=== PATIENT | male | born 1960 ===

== ENCOUNTER 2016-06-13 18:36 | Inpatient (IN) | payer OTHER ==
[2016-06-13] MEDS ORDERED: Sodium Chloride 0.9% 1,000 ML IV ONE (19:48)
--- NOTE | 2016-06-13 19:52 | C.PDOC ---
History Of Present Illness The patient, a 55 y/o male, presents to the ED for evaluation after being referred by Dr. Baldwin for admission. Patient has history of kidney stones and bilateral stents. Patient reports severe left-sided pelvic pain and pain to his hypogastric region. Patient underwent CT A/P on 06/11. Otherwise, he denies fever, chills, back pain, nausea, and vomiting. Time Seen by Provider: 06/13/16 19:37 Chief Complaint (Nursing): Male Genitourinary History Per: Patient History/Exam Limitations: no limitations Onset/Duration Of Symptoms: Days Current Symptoms Are (Timing): Still Present Severity: Severe Quality Of Discomfort: "Pain" Associated Symptoms: denies: Fever, Chills, Nausea, Vomiting, Chest Pain Additional History Per: Patient Past Medical History Reviewed: Historical Data, Nursing Documentation, Vital Signs Vital Signs: Last Vital Signs Temp 98.3 F 06/14/16 00:00 Pulse 62 06/14/16 00:00 Resp 20 06/14/16 00:00 BP 137/73 06/14/16 00:00 Pulse Ox 98 06/14/16 02:06 - Medical History PMH: Anxiety, Depression, HTN, Kidney Stones Surgical History: No Surg Hx Family History: States: Unknown Family Hx - Social History Hx Alcohol Use: Yes Hx Substance Use: No - Immunization History Hx Tetanus Toxoid Vaccination: No Hx Influenza Vaccination: No Hx Pneumococcal Vaccination: No Review Of Systems Except As Marked, All Systems Reviewed And Found Negative. Constitutional: Negative for: Fever, Chills Gastrointestinal: Positive for: Other (+left-sided pelvic and hypogastric region pain ). Negative for: Nausea, Vomiting Musculoskeletal: Negative for: Back Pain Physical Exam - Physical Exam Appears: Non-toxic, No Acute Distress Skin: Normal Color, Warm, Dry Head: Atraumatic, Normacephalic Eye(s): bilateral: Normal Inspection Oral Mucosa: Moist Neck: Supple Chest: Symmetrical, No Deformity, No Tenderness Cardiovascular: Rhythm Regular, No Murmur Respiratory: Normal Breath Sounds, No Rales, No Rhonchi, No Wheezing Gastrointestinal/Abdominal: Tenderness (mild to lower quadrant ), No Guarding, No Rebound Back: Normal Inspection, No Vertebral Tenderness, No Paraspinal Tenderness Extremity: Normal ROM, Capillary Refill (less than 2 seconds ) Neurological/Psych: Oriented x3, Normal Speech, Normal Cognition Gait: Steady ED Course And Treatment - Laboratory Results Result Diagrams: 06/13/16 20:24 06/13/16 20:24 O2 Sat by Pulse Oximetry: 98 (on RA) Pulse Ox Interpretation: Normal - CT Scan/US CT A/P from 06/11/16 Other Rad Studies (CT/US): Interpreted By Me, Read By Radiologist, Radiology Report Reviewed CT/US Interpretation: Accession No. : [id number]. Patient Name / ID : JEFFERSON MASTERS / [id number]. Exam Date : 06/11/2016 10:45:37 ( Approved ). Study Comment : Sex / Age : M / 55Y. Creator : Pattie Garces MD. Dictator : Pattie Garces MD. Certified Teacher Assistant : Poultry Killer : Pattie Garces MD. Approver2 : Report Date : 06/13/2016 11:29:55. My Comment : . PROCEDURE: CT Abdomen and Pelvis without Oral or IV contrast. HISTORY: KIDNEY STONES. COMPARISON: None available. TECHNIQUE: Contiguous axial images of the abdomen and pelvis. No oral or IV contrast administered. Coronal and Sagittal reformats generated and reviewed. Radiation dose: Total exam DLP = 973.01 mGy-cm. This CT exam was performed using one or more of the following dose reduction techniques: Automated exposure control, adjustment of the mA and/ or kV according to patient size, and/or use of iterative reconstruction technique. FINDINGS: There is limited evaluation of the solid organs without the administration of IV contrast. LOWER THORAX: No visible consolidation, pleural effusion, or pneumothorax. LIVER: Unremarkable unenhanced appearance. GALLBLADDER AND BILE DUCTS: Unremarkable unenhanced appearance. PANCREAS: Unremarkable unenhanced appearance. SPLEEN: Unremarkable unenhanced appearance. ADRENALS: Unremarkable unenhanced appearance. KIDNEYS AND URETERS : Bilateral ureteral stents with severe hydronephrosis. Dependent layering calcifications noted within the left kidney compatible with calculi. Within the proximal ureter there is a 1.3 x 1.5 cm calculus. Thick-walled under distended urinary bladder. BLADDER: See above. REPRODUCTIVE: The prostate gland measures approximately 3.5 x 3.8 cm. APPENDIX: The appendix appears unremarkable. BOWEL: The stomach is nondistended. Lack of oral contrast limits evaluation for bowel pathology. The bowel loops appear within normal limits of caliber without evidence of intestinal obstruction. PERITONEUM: No significant free fluid. No definite free air. LYMPH NODES: No bulky lymphadenopathy identified. VASCULATURE: No aortic aneurysm. BONES: Mild degenerative changes. OTHER FINDINGS: None. IMPRESSION: Bilateral ureteral stents with severe hydronephrosis. Dependent layering calcifications noted within the left kidney compatible with calculi. Within the proximal ureter there is a 1.3 x 1.5 cm calculus. Thick-walled under distended urinary bladder. Progress Note: labs ordered and reviewed. Patient recieved Ciproflaxin IV, Diluadid IV, Flomax PO, and IV fluids. Disposition Discussed With DrCj: Erasto Norris (Dr. Erlinda Baldwin-urology consult) Doctor Will See Patient In The: Hospital Counseled Patient/Family Regarding: Studies Performed, Diagnosis - Disposition Disposition: HOSPITALIZED Disposition Time: 21:39 Condition: STABLE - POA Present On Arrival: None - Clinical Impression Clinical Impression: Renal colic, Urinary tract infection, Hydronephrosis - Scribe Statement The provider has reviewed the documentation as recorded by the Scribe (Estefanía Norris) Provider Attestation: All medical record entries made by the Scribe were at my direction and personally dictated by me. I have reviewed the chart and agree that the record accurately reflects my personal performance of the history, physical exam, medical decision making, and the department course for this patient. I have also personally directed, reviewed, and agree with the discharge instructions and disposition.
[2016-06-13] MEDS ORDERED: Sodium Chloride 0.9% 1,000 ML ONE (20:06)
[2016-06-13] MEDS ORDERED: Ciprofloxacin 400mg/200ml D5W 400 MG/200 ML BAG IVPB STA (20:08)
[2016-06-13 20:28] LABS: BASO # 0.1 K/uL (0.0-0.2); BASO % 0.7 % (0.0-2.0); EOS # 0.4 K/uL (0.0-0.7); EOS % 2.9 % (0.0-4.0); HEMATOCRIT 42.8 % (35.0-51.0); LYMPH # 3.4 K/uL (1.0-4.3); LYMPH % 23.4 % (20.0-40.0); MEAN CORPUSCULAR HEMOGLOBIN 28.4 pg (27.0-31.0); MEAN CORPUSCULAR HGB CONC 32.6 g/dL (33.0-37.0); MEAN PLATELET VOLUME 7.7 fL (7.2-11.7); MONO # 1.2 K/uL (0.0-0.8); MONO % 8.2 % (0.0-10.0); RED CELL DISTRIBUTION WIDTH 14.4 % (11.5-14.5); WHITE BLOOD COUNT 14.6 K/uL (4.8-10.8)
[2016-06-13 20:36] LABS: RBC URINE 288 /hpf (0-3); URINE BILIRUBIN NEGATIVE (NEGATIVE); URINE BLOOD 3+ (NEGATIVE); URINE COLOR Yellow (YELLOW); URINE GLUCOSE (UA) NORMAL (Normal); URINE KETONE NEGATIVE (NEGATIVE); URINE LEUKOCYTE ESTERASE 3+ Leu/uL (Negative); URINE PROTEIN 1+ mg/dL (NEGATIVE); URINE UROBILINOGEN NORMAL mg/dL (0.2-1.0); WBC URINE 62 /hpf (0-5)
[2016-06-13 20:38] LABS: CHLORIDE 104 mmol/L (98-107); POTASSIUM 4.2 mmol/L (3.6-5.2); SODIUM 139 mmol/L (132-148)
[2016-06-13 20:40] LABS: BILIRUBIN,TOTAL 0.6 mg/dL (0.2-1.3); CARBON DIOXIDE 23 mmol/L (22-30); GFR AFRICAN-AMERICAN > 60
[2016-06-13 20:41] LABS: ALB/GLOB RATIO 1.4 (1.0-2.1); ALKALINE PHOSPHATASE 82 U/L (38-126); ALT/SGPT 15 U/L (21-72); AST/SGOT 15 U/L (17-59); BLOOD UREA NITROGEN 17 mg/dL (9-20); CALCIUM 9.1 mg/dl (8.6-10.4); GLUCOSE,RANDOM 135 mg/dL (75-110); TOTAL PROTEIN 7.3 g/dL (6.3-8.3)
[2016-06-13] MEDS ORDERED: Ciprofloxacin 400mg/200ml D5W 400 MG/200 ML BAG IVPB ONE (20:47)
[2016-06-13 21:33] LABS: URINE BACTERIA FEW (<OCC)
--- NOTE | 2016-06-13 22:57 | CP.PCM.HP ---
History of Present Illness - History of Present Illness History of Present Illness: 55 years old male patient with past medical history of hypertension, kidney stones, depression, was referred by Dr. Baldwin for complaint of left-sided pelvic pain and for further evaluation. No fever nausea vomiting No chest pain, diarrhea, burning micturition, hematuria Present on Admission - Present on Admission Any Indicators Present on Admission: No Past Patient History - Infectious Disease Hx of Infectious Diseases: None - Past Social History Smoking Status: Heavy Smoker > 10 Cigarettes Daily - CARDIAC Hx Hypertension: Yes - RENAL Hx Kidney Stones: Yes - PSYCHIATRIC Hx Anxiety: Yes Hx Depression: Yes Hx Substance Use: No - SURGICAL HISTORY Other/Comment: TURP - ANESTHESIA Hx Anesthesia: Yes Hx Anesthesia Reactions: No Meds Allergies/Adverse Reactions: Allergies Allergy/AdvReac Type Severity Reaction Status Date / Time No Known Allergies Allergy Verified 08/01/16 18:58 Results - Vital Signs Recent Vital Signs: Last Vital Signs Temp 98.2 F 06/13/16 18:44 Pulse 72 06/13/16 21:57 Resp 18 06/13/16 21:57 BP 122/72 06/13/16 21:57 Pulse Ox 98 06/13/16 22:53 - Labs Result Diagrams: 06/20/16 11:33 06/20/16 11:33 Assessment & Plan (1) Hematuria Status: Acute (2) Hydronephrosis Status: Acute (3) Renal colic Status: Acute (4) UTI (urinary tract infection) Status: Acute (5) Urinary tract infection Status: Acute - Assessment and Plan (Free Text) Plan: Labs reviewed IV ciprofloxacin Lovenox Urology consult Blood pressure control Pain meds Labs next a.m.
[2016-06-14] MEDS: Enoxaparin 40 mg Syringe SC SCH (10:38)
[2016-06-14] MEDS: Pantoprazole 40 mg EC Tab PO SCH (10:38)
[2016-06-14] MEDS: Ciprofloxacin 400mg/200ml D5W 400 MG/200 ML BAG IVPB SCH ×3 (10:48→22:05)
--- NOTE | 2016-06-14 12:02 | CP.PCM.CON ---
Past Patient History - Infectious Disease Hx of Infectious Diseases: None - Past Social History Smoking Status: Current Some Days Smoker - CARDIAC Hx Cardiac Disorders: Yes Hx Hypertension: Yes - PULMONARY Hx Respiratory Disorders: No - NEUROLOGICAL Hx Neurological Disorder: No - HEENT Hx HEENT Problems: No - RENAL Hx Kidney Stones: Yes - ENDOCRINE/METABOLIC Hx Endocrine Disorders: Yes - HEMATOLOGICAL/ONCOLOGICAL Hx Blood Disorders: Yes - INTEGUMENTARY Hx Dermatological Problems: Yes - MUSCULOSKELETAL/RHEUMATOLOGICAL Hx Musculoskeletal Disorders: Yes Hx Falls: No - GASTROINTESTINAL Hx Gastrointestinal Disorders: Yes - PSYCHIATRIC Hx Psychophysiologic Disorder: Yes Hx Anxiety: Yes Hx Depression: Yes Hx Substance Use: No - SURGICAL HISTORY Hx Surgeries: Yes Other/Comment: TURP - ANESTHESIA Hx Anesthesia: Yes Hx Anesthesia Reactions: No Meds Allergies/Adverse Reactions: Allergies Allergy/AdvReac Type Severity Reaction Status Date / Time No Known Allergies Allergy Verified 06/13/16 18:50 - Medications Medications: Current Medications Allopurinol (Zyloprim) 300 mg PO DAILY [facility] Last Admin: 06/14/16 10:38 Dose: 300 mg Carvedilol (Coreg) 6.25 mg PO BID [facility] Last Admin: 06/14/16 10:47 Dose: 6.25 mg Citalopram Hydrobromide (Celexa) 20 mg PO DAILY [facility] Last Admin: 06/14/16 10:48 Dose: 20 mg Enoxaparin Sodium (Lovenox) 40 mg SC DAILY [facility] Last Admin: 06/14/16 10:38 Dose: 40 mg Home Med (Potassium Citrate [Potassium Citrate Er]) 10 meq PO TID [facility] Ciprofloxacin (Cipro 400mg/200ml Dsw) 400 mg in 200 mls @ 133 mls/hr IVPB Q12H [facility] Last Admin: 06/14/16 10:48 Dose: 133 mls/hr Lisinopril (Zestril) 10 mg PO DAILY [facility] Last Admin: 06/14/16 10:38 Dose: 10 mg Pantoprazole Sodium (Protonix Ec Tab) 40 mg PO DAILY [facility] Last Admin: 06/14/16 10:38 Dose: 40 mg Pneumococcal Polyvalent Vaccine (Pneumovax 23 Vaccine) 0.5 ml IM .ONCE ONE Stop: 06/15/16 10:01 Tamsulosin HCl (Flomax) 0.4 mg PO DAILY [facility] Last Admin: 06/14/16 10:38 Dose: 0.4 mg Tramadol HCl (Ultram) 50 mg PO Q6H PRN PRN Reason: Pain, moderate (4-7) Last Admin: 06/14/16 01:43 Dose: 50 mg Results - Vital Signs Recent Vital Signs: Last Vital Signs Temp 97.9 F 06/14/16 07:36 Pulse 60 06/14/16 07:36 Resp 20 06/14/16 07:36 BP 121/69 06/14/16 07:36 Pulse Ox 99 06/14/16 07:36 - Labs Result Diagrams: 06/13/16 20:24 06/13/16 20:24 Assessment & Plan - Assessment and Plan (Free Text) Assessment: IMP: ABD PAIN UROLITHIASIS HYDRONEPHROSIS - Date & Time Date: 06/14/16 Time: 12:01
--- NOTE | 2016-06-14 16:42 | CP.PCM.PN ---
Subjective - Date & Time of Evaluation Date of Evaluation: 06/14/16 Time of Evaluation: 10:00 - Subjective Subjective: clinically same Objective - Vital Signs/Intake and Output Vital Signs (last 24 hours): Temp Pulse Resp BP Pulse Ox 98.3 F 62 20 130/78 97 06/14/16 16:11 06/14/16 16:11 06/14/16 16:11 06/14/16 16:11 06/14/16 16:11 - Medications Medications: Current Medications Allopurinol (Zyloprim) 300 mg PO DAILY [facility] Last Admin: 06/14/16 10:38 Dose: 300 mg Carvedilol (Coreg) 6.25 mg PO BID [facility] Last Admin: 06/14/16 10:47 Dose: 6.25 mg Citalopram Hydrobromide (Celexa) 20 mg PO DAILY [facility] Last Admin: 06/14/16 10:48 Dose: 20 mg Enoxaparin Sodium (Lovenox) 40 mg SC DAILY [facility] Last Admin: 06/14/16 10:38 Dose: 40 mg Home Med (Potassium Citrate [Potassium Citrate Er]) 10 meq PO TID [facility] Ciprofloxacin (Cipro 400mg/200ml Dsw) 400 mg in 200 mls @ 133 mls/hr IVPB Q12H [facility] Last Admin: 06/14/16 10:48 Dose: 133 mls/hr Lisinopril (Zestril) 10 mg PO DAILY [facility] Last Admin: 06/14/16 10:38 Dose: 10 mg Pantoprazole Sodium (Protonix Ec Tab) 40 mg PO DAILY [facility] Last Admin: 06/14/16 10:38 Dose: 40 mg Pneumococcal Polyvalent Vaccine (Pneumovax 23 Vaccine) 0.5 ml IM .ONCE ONE Stop: 06/15/16 10:01 Tamsulosin HCl (Flomax) 0.4 mg PO DAILY [facility] Last Admin: 06/14/16 10:38 Dose: 0.4 mg Tramadol HCl (Ultram) 50 mg PO Q6H PRN PRN Reason: Pain, moderate (4-7) Last Admin: 06/14/16 01:43 Dose: 50 mg - Constitutional Appears: Well - Head Exam Head Exam: ATRAUMATIC, NORMAL INSPECTION, NORMOCEPHALIC - Eye Exam Eye Exam: EOMI, Normal appearance, PERRL Pupil Exam: NORMAL ACCOMODATION, PERRL - ENT Exam ENT Exam: Mucous Membranes Moist, Normal Exam - Neck Exam Neck Exam: Full ROM, Normal Inspection. 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 antibiotcs
[2016-06-14 16:53] LABS: BASO # 0.1 K/uL (0.0-0.2); BASO % 0.7 % (0.0-2.0); EOS # 0.4 K/uL (0.0-0.7); EOS % 4.1 % (0.0-4.0); HEMATOCRIT 41.2 % (35.0-51.0); LYMPH % 29.9 % (20.0-40.0); MEAN CELL VOLUME 88.1 fL (80.0-94.0); MEAN CORPUSCULAR HEMOGLOBIN 29.6 pg (27.0-31.0); MEAN CORPUSCULAR HGB CONC 33.6 g/dL (33.0-37.0); MEAN PLATELET VOLUME 7.6 fL (7.2-11.7); MONO # 0.7 K/uL (0.0-0.8); MONO % 6.7 % (0.0-10.0); RED CELL DISTRIBUTION WIDTH 14.6 % (11.5-14.5); WHITE BLOOD COUNT 10.2 K/uL (4.8-10.8)
[2016-06-14 17:10] LABS: CHLORIDE 104 mmol/L (98-107)
[2016-06-14 17:11] LABS: SODIUM 136 mmol/L (132-148)
[2016-06-14 17:13] LABS: ALB/GLOB RATIO 1.3 (1.0-2.1); AST/SGOT 15 U/L (17-59); BILIRUBIN,TOTAL 0.5 mg/dL (0.2-1.3); CARBON DIOXIDE 22 mmol/L (22-30); GFR AFRICAN-AMERICAN > 60; TOTAL PROTEIN 6.6 g/dL (6.3-8.3)
[2016-06-14 17:14] LABS: ALKALINE PHOSPHATASE 88 U/L (38-126); ALT/SGPT 19 U/L (21-72); BLOOD UREA NITROGEN 14 mg/dL (9-20); CALCIUM 8.6 mg/dl (8.6-10.4); GLUCOSE,RANDOM 157 mg/dL (75-110)
--- NOTE | 2016-06-15 04:44 | CON ---
DATE: 06/14/2016 Urology consultation requested by Dr. Param Norris. Urology consultation filled by Dr. Erlinda Baldwin. REASON FOR CONSULTATION: Urinary tract infection. Urolithiasis. The patient is a 55-year-old male admitted with abdominal pain. The patient has history of bilateral urolithiasis. He had kidney stones diagnosed a year ago. The p atient did not comply with the recommended therapy or followup for his kidney stones. The patient presented to [facility] with renal failure earlier this year. He was fou nd to have bilateral obstructing ureteral stones and renal stones on the left. The patient had a cys toscopy and bilateral stent insertion. He had improvement of his renal function. The patient subsequently underwent extracorporeal shockwave lithotripsy after improvement of his brigida l function. The patient had a uric acid component to his stones. He was also begun on Urocit-K. The patient now presents with abdominal pain. He has lower abdominal pain associated with voiding. He has occasional flank pain. There was possible recent fever as well. The patient voids with good urinary stream with good control. The patient has urinary frequency. For further details, see attached chart. PHYSICAL EXAMINATION: GENERAL: The patient is a well-developed, well-nourished, middle-aged male. The patient is awake an d alert. ABDOMEN: Soft, nontender, nondistended. No mass or organomegaly. BACK: No CVA tenderness. GENITALIA: Without inflammation. IMPRESSION: Urolithiasis. Probable urinary tract infection. Bilateral ureteral stents in place. H istory of severe hydronephrosis. History of bilateral urolithiasis. RECOMMENDATIONS AND PLAN: Continue antibiotic therapy. Cultures pending. Review x-rays. Further t herapy to follow according to patient's clinical course. Possible need for lithotripsy. The findings were discussed with the patient and his . Erlinda Baldwin MD cc: [phone] TT: 06/15/2016 04:43:51 Confirmation # [id number] Dictation # [id number]
--- NOTE | 2016-06-15 08:46 | CP.PCM.PN ---
Subjective - Date & Time of Evaluation Date of Evaluation: 06/15/16 Time of Evaluation: 08:00 - Subjective Subjective: PGY2 Medicine Note - Dr. Aundrea Norris's service: Patient seen and examined this AM. Patient sitting comfortably in chair playing game on tablet. Patient is a 55 year old male with history of b/l urolithiasis for which he had cystoscopy and b/l ureteral stents placed at [facility]. Patient reports mild right groin pain last night. Patient denies fever, chills, chest pain, SOB, nausea, vomiting, dysuria, hematuria. Objective - Vital Signs/Intake and Output Vital Signs (last 24 hours): Temp Pulse Resp BP Pulse Ox 97.7 F 62 20 115/76 100 06/15/16 07:08 06/15/16 07:08 06/15/16 07:08 06/15/16 07:08 06/15/16 07:08 Intake and Output: 06/15/16 06/15/16 06:59 18:59 Intake Total 670 Balance 670 - Medications Medications: Current Medications Allopurinol (Zyloprim) 300 mg PO DAILY [facility] Last Admin: 06/14/16 10:38 Dose: 300 mg Carvedilol (Coreg) 6.25 mg PO BID [facility] Last Admin: 06/14/16 17:22 Dose: 6.25 mg Citalopram Hydrobromide (Celexa) 20 mg PO DAILY [facility] Last Admin: 06/14/16 10:48 Dose: 20 mg Enoxaparin Sodium (Lovenox) 40 mg SC DAILY [facility] Last Admin: 06/14/16 10:38 Dose: 40 mg Home Med (Potassium Citrate [Potassium Citrate Er]) 10 meq PO TID [facility] Ciprofloxacin (Cipro 400mg/200ml Dsw) 400 mg in 200 mls @ 133 mls/hr IVPB Q12H [facility] Last Admin: 06/14/16 22:05 Dose: 133 mls/hr Lisinopril (Zestril) 10 mg PO DAILY [facility] Last Admin: 06/14/16 10:38 Dose: 10 mg Nicotine (Nicoderm Cq) 1 patch TD DAILY [facility] Pantoprazole Sodium (Protonix Ec Tab) 40 mg PO DAILY [facility] Last Admin: 06/14/16 10:38 Dose: 40 mg Pneumococcal Polyvalent Vaccine (Pneumovax 23 Vaccine) 0.5 ml IM .ONCE ONE Stop: 06/15/16 10:01 Tamsulosin HCl (Flomax) 0.4 mg PO DAILY [facility] Last Admin: 06/14/16 10:38 Dose: 0.4 mg Tramadol HCl (Ultram) 50 mg PO Q6H PRN PRN Reason: Pain, moderate (4-7) Last Admin: 06/14/16 17:25 Dose: 50 mg - Labs Labs: 06/14/16 16:43 06/14/16 16:43 - Constitutional Appears: Non-toxic, No Acute Distress - Head Exam Head Exam: NORMAL INSPECTION - Eye Exam Eye Exam: EOMI - ENT Exam ENT Exam: Mucous Membranes Moist - Respiratory Exam Respiratory Exam: Clear to Ausculation Bilateral, NORMAL BREATHING PATTERN. absent: Rales, Rhonchi, Wheezes - Cardiovascular Exam Cardiovascular Exam: REGULAR RHYTHM, +S1, +S2. absent: Gallop, Rubs, Murmur - GI/Abdominal Exam GI & Abdominal Exam: Soft, Normal Bowel Sounds. absent: Tenderness - Extremities Exam Extremities Exam: absent: Pedal Edema - Neurological Exam Neurological Exam: Alert, Oriented x3 - Psychiatric Exam Psychiatric exam: Normal Affect, Normal Mood - Skin Skin Exam: Normal Color, Warm Assessment and Plan - Assessment and Plan (Free Text) Assessment: UTI UA 1+ protein, 3+ blood, 3+ LE, 62 WBC, 288 RBC F/U urine culture Blood culture neg x 24 hours Urolithiasis Found to have uric acid component after cystoscopy earlier this year UA 1+ protein, 3+ blood, 3+ LE, 62 WBC, 288 RBC Urology conulst - Dr. Baldwin - help appreciated Tramadol 50mg PO Q6H PRN pain - not taken since 5:30pm last night Flomax 0.4mg PO daily Allopurinol 300mg PO daily HTN Coreg 6.25mg PO BID Lisinopril 10mg PO daily Depression Celexa 20mg PO daily Tobacco abuse Nicotine patch 21mg/patch TD daily Prophylaxis Protonix 40mg PO daily Lovenox 40mg SC daily
[2016-06-15] MEDS: Pantoprazole 40 mg EC Tab PO SCH (09:44)
[2016-06-15] MEDS: Enoxaparin 40 mg Syringe SC SCH (09:46)
[2016-06-15] MEDS ORDERED: Potassium Chloride 20 mEq ER Tab PO ONE (10:00)
[2016-06-15] MEDS ORDERED: Pneumococcal 23-Valent Vaccine IM ONE (10:00)
[2016-06-15] MEDS: Ciprofloxacin 400mg/200ml D5W 400 MG/200 ML BAG IVPB SCH ×2 (12:48→22:04)
--- NOTE | 2016-06-15 18:23 | CP.PCM.PN ---
Subjective - Date & Time of Evaluation Date of Evaluation: 06/15/16 Time of Evaluation: 10:20 - Subjective Subjective: clinically same Objective - Vital Signs/Intake and Output Vital Signs (last 24 hours): Temp Pulse Resp BP Pulse Ox 98.1 F 59 L 20 154/89 H 97 06/15/16 15:10 06/15/16 15:10 06/15/16 15:10 06/15/16 15:10 06/15/16 15:10 Intake and Output: 06/15/16 06/15/16 06:59 18:59 Intake Total 670 200 Balance 670 200 - Medications Medications: Current Medications Allopurinol (Zyloprim) 300 mg PO DAILY [facility] Last Admin: 06/15/16 09:44 Dose: 300 mg Carvedilol (Coreg) 6.25 mg PO BID [facility] Last Admin: 06/15/16 17:36 Dose: 6.25 mg Citalopram Hydrobromide (Celexa) 20 mg PO DAILY [facility] Last Admin: 06/15/16 09:44 Dose: 20 mg Enoxaparin Sodium (Lovenox) 40 mg SC DAILY [facility] Last Admin: 06/15/16 09:46 Dose: 40 mg Ciprofloxacin (Cipro 400mg/200ml Dsw) 400 mg in 200 mls @ 133 mls/hr IVPB Q12H [facility] Last Admin: 06/15/16 12:48 Dose: 133 mls/hr Lisinopril (Zestril) 10 mg PO DAILY [facility] Last Admin: 06/15/16 09:44 Dose: 10 mg Nicotine (Nicoderm Cq) 1 patch TD DAILY [facility] Last Admin: 06/15/16 12:49 Dose: 1 patch Pantoprazole Sodium (Protonix Ec Tab) 40 mg PO DAILY [facility] Last Admin: 06/15/16 09:44 Dose: 40 mg Tamsulosin HCl (Flomax) 0.4 mg PO DAILY [facility] Last Admin: 06/15/16 09:44 Dose: 0.4 mg Tramadol HCl (Ultram) 50 mg PO Q6H PRN PRN Reason: Pain, moderate (4-7) Last Admin: 06/15/16 17:36 Dose: 50 mg - Labs Labs: 06/14/16 16:43 06/14/16 16:43 - Constitutional Appears: Well - Head Exam Head Exam: ATRAUMATIC, NORMAL INSPECTION, NORMOCEPHALIC - Eye Exam Eye Exam: EOMI, Normal appearance, PERRL Pupil Exam: NORMAL ACCOMODATION, PERRL - ENT Exam ENT Exam: Mucous Membranes Moist, Normal Exam - Neck Exam Neck Exam: Full ROM, Normal Inspection. 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 antibiotcs
[2016-06-16 08:00] LABS: BASO # 0.1 K/uL (0.0-0.2); BASO % 0.5 % (0.0-2.0); EOS # 0.4 K/uL (0.0-0.7); EOS % 2.9 % (0.0-4.0); HEMATOCRIT 44.2 % (35.0-51.0); LYMPH # 3.2 K/uL (1.0-4.3); LYMPH % 26.7 % (20.0-40.0); MEAN CELL VOLUME 87.9 fL (80.0-94.0); MEAN CORPUSCULAR HEMOGLOBIN 28.9 pg (27.0-31.0); MEAN CORPUSCULAR HGB CONC 32.9 g/dL (33.0-37.0); MEAN PLATELET VOLUME 7.7 fL (7.2-11.7); MONO % 8.1 % (0.0-10.0); NRBC % 0.1 % (0.0-2.0); RED CELL DISTRIBUTION WIDTH 14.3 % (11.5-14.5)
[2016-06-16 08:23] LABS: INR 1.1
[2016-06-16 08:32] LABS: CHLORIDE 104 mmol/L (98-107); POTASSIUM 4.2 mmol/L (3.6-5.2); SODIUM 140 mmol/L (132-148)
[2016-06-16 08:34] LABS: GFR AFRICAN-AMERICAN > 60
[2016-06-16 08:35] LABS: ALB/GLOB RATIO 1.4 (1.0-2.1); ALKALINE PHOSPHATASE 87 U/L (38-126); ALT/SGPT 19 U/L (21-72); AST/SGOT 14 U/L (17-59); BILIRUBIN,TOTAL 0.8 mg/dL (0.2-1.3); BLOOD UREA NITROGEN 16 mg/dL (9-20); CALCIUM 9.2 mg/dl (8.6-10.4); CARBON DIOXIDE 25 mmol/L (22-30); GLUCOSE,RANDOM 87 mg/dL (75-110)
--- NOTE | 2016-06-16 10:38 | CP.PCM.PN ---
Subjective - Date & Time of Evaluation Date of Evaluation: 06/16/16 Time of Evaluation: 10:00 - Subjective Subjective: PGY2 Medicine Note - Dr. Aundrea Norris's service: Patient seen and examined this AM. Patient reports mild right groin pain last night. Patient denies fever, chills, chest pain, SOB, nausea, vomiting, dysuria , hematuria. Objective - Vital Signs/Intake and Output Vital Signs (last 24 hours): Temp Pulse Resp BP Pulse Ox 98 F 60 20 150/88 98 06/16/16 08:38 06/16/16 08:38 06/16/16 08:38 06/16/16 08:38 06/16/16 08:38 Intake and Output: 06/16/16 06/16/16 06:59 18:59 Intake Total 0 Balance 0 - Medications Medications: Current Medications Allopurinol (Zyloprim) 300 mg PO DAILY [facility] Last Admin: 06/15/16 09:44 Dose: 300 mg Carvedilol (Coreg) 6.25 mg PO BID [facility] Last Admin: 06/15/16 17:36 Dose: 6.25 mg Citalopram Hydrobromide (Celexa) 20 mg PO DAILY [facility] Last Admin: 06/15/16 09:44 Dose: 20 mg Enoxaparin Sodium (Lovenox) 40 mg SC DAILY [facility] Last Admin: 06/15/16 09:46 Dose: 40 mg Ciprofloxacin (Cipro 400mg/200ml Dsw) 400 mg in 200 mls @ 133 mls/hr IVPB Q12H [facility] Last Admin: 06/15/16 22:04 Dose: 133 mls/hr Lisinopril (Zestril) 10 mg PO DAILY [facility] Last Admin: 06/15/16 09:44 Dose: 10 mg Nicotine (Nicoderm Cq) 1 patch TD DAILY [facility] Last Admin: 06/15/16 12:49 Dose: 1 patch Pantoprazole Sodium (Protonix Ec Tab) 40 mg PO DAILY [facility] Last Admin: 06/15/16 09:44 Dose: 40 mg Tamsulosin HCl (Flomax) 0.4 mg PO DAILY [facility] Last Admin: 06/15/16 09:44 Dose: 0.4 mg Tramadol HCl (Ultram) 50 mg PO Q6H PRN PRN Reason: Pain, moderate (4-7) Last Admin: 06/15/16 17:36 Dose: 50 mg - Labs Labs: 06/16/16 07:47 06/16/16 07:47 PT 12.5 SECONDS (9.7-12.2) H 06/16/16 07:47 INR 1.1 06/16/16 07:47 APTT 33 SECONDS (21-34) 06/16/16 07:47 - Constitutional Appears: Non-toxic, No Acute Distress - Head Exam Head Exam: NORMAL INSPECTION - Eye Exam Eye Exam: EOMI - ENT Exam ENT Exam: Mucous Membranes Moist - Respiratory Exam Respiratory Exam: Clear to Ausculation Bilateral, NORMAL BREATHING PATTERN. absent: Rales, Rhonchi, Wheezes - Cardiovascular Exam Cardiovascular Exam: REGULAR RHYTHM, +S1, +S2. absent: Gallop, Rubs, Murmur - GI/Abdominal Exam GI & Abdominal Exam: Soft, Normal Bowel Sounds. absent: Tenderness - Extremities Exam Extremities Exam: absent: Pedal Edema - Neurological Exam Neurological Exam: Alert, Awake, Oriented x3 - Psychiatric Exam Psychiatric exam: Normal Affect, Normal Mood - Skin Skin Exam: Normal Color, Warm Assessment and Plan - Assessment and Plan (Free Text) Assessment: Nephrolithiasis Abd/Pelvis CT 06/11/16 - b/l ureteral stents with severe hydronephrosis. Depending layering calcifications notes within the left kidney compatible with calculi. Within the proximal ureter there is a 1.3 x 1.5 cm calculus. (please see full report) Found to have uric acid component after cystoscopy earlier this year UA 1+ protein, 3+ blood, 3+ LE, 62 WBC, 288 RBC urine culture negative Blood culture neg x 48 hours Urology consult - Dr. Baldwin - help appreciated Percutaneous nephrostomy shunt by IR today Percutaneous removal of renal stones on Monday by Dr. Baldwin Tramadol 50mg PO Q6H PRN pain - not taken since 5:30pm last night Flomax 0.4mg PO daily Allopurinol 300mg PO daily HTN Coreg 6.25mg PO BID Lisinopril 10mg PO daily Depression Celexa 20mg PO daily Tobacco abuse Nicotine patch 21mg/patch TD daily Prophylaxis Protonix 40mg PO daily Lovenox 40mg SC daily
[2016-06-16] MEDS: Enoxaparin 40 mg Syringe SC SCH (11:07)
[2016-06-16] MEDS: Pantoprazole 40 mg EC Tab PO SCH (11:07)
--- NOTE | 2016-06-16 11:23 | PCM.URO ---
Urology Progress Note - Objective Lab Results Last 24 Hours: Laboratory Results - last 24 hr 06/16/16 06/16/16 06/16/16 07:47 07:47 07:47 WBC 12.0 H RBC 5.03 Hgb 14.6 Hct 44.2 MCV 87.9 MCH 28.9 MCHC 32.9 L RDW 14.3 Plt Count 391 MPV 7.7 Neut % (Auto) 61.8 Lymph % (Auto) 26.7 Sibley % (Auto) 8.1 Eos % (Auto) 2.9 Baso % (Auto) 0.5 Neut # 7.4 H Lymph # 3.2 Sibley # 1.0 H Eos # 0.4 Baso # 0.1 PT 12.5 H INR 1.1 APTT 33 Sodium 140 Potassium 4.2 Chloride 104 Carbon Dioxide 25 Anion Gap 16 BUN 16 Creatinine 1.2 Est GFR ( Amer) > 60 Est GFR (Non-Af Amer) > 60 Random Glucose 87 Calcium 9.2 Total Bilirubin 0.8 AST 14 L ALT 19 L Alkaline Phosphatase 87 Total Protein 7.0 Albumin 4.1 Globulin 2.9 Albumin/Globulin Ratio 1.4 Blood Type Antibody Screen 06/16/16 07:47 WBC RBC Hgb Hct MCV MCH MCHC RDW Plt Count MPV Neut % (Auto) Lymph % (Auto) Sibley % (Auto) Eos % (Auto) Baso % (Auto) Neut # Lymph # Sibley # Eos # Baso # PT INR APTT Sodium Potassium Chloride Carbon Dioxide Anion Gap BUN Creatinine Est GFR ( Amer) Est GFR (Non-Af Amer) Random Glucose Calcium Total Bilirubin AST ALT Alkaline Phosphatase Total Protein Albumin Globulin Albumin/Globulin Ratio Blood Type A POSITIVE Antibody Screen Negative Intake & Output: Intake & Output 06/15/16 06/16/16 06/16/16 18:59 06:59 18:59 Intake Total 200 0 Balance 200 0 Intake: Oral 200 0 Other: # Voids Urine, Voided 2 2 # Bowel Movements 0 Vital Signs: Vital Signs - 24 hr 06/15/16 06/16/16 06/16/16 15:10 00:00 08:38 Temperature 98.1 F 98.2 F 98 F Pulse Rate 59 L 60 60 Respiratory 20 20 20 Rate Blood Pressure 154/89 H 144/80 150/88 O2 Sat by Pulse 97 97 98 Oximetry
[2016-06-16] MEDS: Ciprofloxacin 400mg/200ml D5W 400 MG/200 ML BAG IVPB SCH ×2 (11:38→22:01)
[2016-06-16] MEDS ORDERED: Iohexol 240 (50 ml) ONE (12:45)
[2016-06-16] MEDS ORDERED: Lidocaine 1% Inj (20ml) ONE (12:51)
--- NOTE | 2016-06-16 13:35 | PCM.SURG1 ---
Surgeon's Initial Post Op Note - Surgeon's Notes Surgeon: Pato Mc MD Seo Analyst: NONE Type of Anesthesia: IV Sedation Pre-Operative Diagnosis: Left renal calculi, hydronephrosis. Operative Findings: Moderate hydronephrosis, large calculi renal pelvis extending into proximal ureter. Large calculi lower pole calyx. Post-Operative Diagnosis: Left renal calculi, hydronephrosis. Operation Performed: Left percutaneous nephrostomy tube placement. Specimen/Specimens Removed: None Estimated Blood Loss: EBL {In ML}: 2 Blood Products Given: N/A Drains Used: No Drains Post-Op Condition: Fair Date of Surgery/Procedure: 06/16/16 Time of Surgery/Procedure: 13:30
[2016-06-16] MEDS: HYDROmorphone 0.5 mg/0.5 ml ISec IVP PRN ×2 (13:50→14:15)
--- NOTE | 2016-06-16 13:51 | PN ---
DATE: 06/16/2016 The patient is currently resting in a chair with his , under the care of Dr. Aundrea Norris. He has ur olithiasis. See the plans listed below. The patient is scheduled for percutaneous nephrostomy tube insertion for today and then for tomorrow, percutaneous nephrostolithotomy with Dr. Erlinda Baldwin. In the interim, no urology changes. SOCIAL HISTORY, PAST MEDICAL AND SURGICAL HISTORY: All listed on the chart, under the care of Dr. Aundrea Norris. REVIEW OF SYSTEMS: Listed above. PHYSICAL EXAMINATION: GENERAL: Well-nourished male, no apparent distress, currently resting comfortably. VITAL SIGNS: Noted. The remainder of physical exam is otherwise unremarkable. LABORATORIES: See chart. DIAGNOSIS: Urolithiasis. PLAN: I answered any questions that the patient may have, may have. He is scheduled for percutaneous nephrostomy tube and then subsequent percutaneous nephrostolithotomy . No other interim changes. Alexi Baldwin MD cc: [phone] TT: 06/16/2016 13:50:39 Confirmation # [id number] Dictation # [id number]
--- NOTE | 2016-06-16 15:34 | RAD ---
PROCEDURE: < Date of procedure: 06/16/2016 Procedure: 1. Left nephrostogram, CPT 35392 2. Left percutaneous nephrostomy tube placement, CPT 60436 Medications: The patient sedated by the anesthesiologist. EBL: 2 cc Contrast: 20 cc Visipaque 320 Radiation: 666.7 seconds Radiation dose: 118.65 mGy HISTORY: Ureteral obstruction, hydronephrosis TECHNIQUE: Following informed consent and procedure time-out, the patient was placed prone on the interventional table and the skin was marked. The last lower back were prepped and draped in the usual sterile fashion. Ultrasound confirmed the presence of mild left hydronephrosis. Large lower pole calculi were present. Midpole calculus also present. Internal stents were visualized. After the patient was sedated by the anesthesiologist and the lower back anesthetized with 5 cc 1% lidocaine, a 22 gauge Chiba needle was advanced percutaneously under direct ultrasound guidance into a dilated posterior upper pole calyx. Upon return of cloudy urine, contrast was injected through the needle which filled a dilated renal collecting system. A guidewire was advanced through the needle into the ureter. Needle was exchanged for an Accustick coaxial dilator. The dilator was exchanged over the 035 wire for a 7 Cypriot vascular sheath. Through the sheath, a Berenstein catheter was advanced into the mid ureter and antegrade nephrostogram was performed. There is abrupt cut off of contrast seen in renal pelvis secondary to large proximal ureteral stone. An internal stent is present. With continued contrast injection, some contrast is a was advanced alongside the catheter. A guidewire could not be advanced beyond the proximal ureteral stone. The nephrostomy tube was formed within renal pelvis for planned lithotripsy. An 8 Cypriot nephrostomy tube was advanced over the wire and formed within the renal pelvis. Position of the tube was confirmed with contrast injection. The tube was secured to patient's skin. The nephrostomy tube was attached to drainage bag. IMPRESSION: Antegrade nephrostogram showed moderate hydronephrosis. Obstructing proximal ureteral calculus. Placement of an 8 Cypriot nephrostomy tube within the renal pelvis for lithotripsy.
--- NOTE | 2016-06-16 16:27 | CP.PCM.PN ---
Subjective - Date & Time of Evaluation Date of Evaluation: 06/16/16 Time of Evaluation: 09:40 - Subjective Subjective: clinically same Objective - Vital Signs/Intake and Output Vital Signs (last 24 hours): Temp Pulse Resp BP Pulse Ox 98.2 F 64 20 120/70 93 L 06/16/16 14:45 06/16/16 14:45 06/16/16 14:45 06/16/16 14:45 06/16/16 14:45 Intake and Output: 06/16/16 06/16/16 06:59 18:59 Intake Total 0 700 Balance 0 700 - Medications Medications: Current Medications Allopurinol (Zyloprim) 300 mg PO DAILY [facility] Last Admin: 06/16/16 11:07 Dose: Not Given Carvedilol (Coreg) 6.25 mg PO BID [facility] Last Admin: 06/16/16 11:44 Dose: 6.25 mg Citalopram Hydrobromide (Celexa) 20 mg PO DAILY [facility] Last Admin: 06/16/16 11:06 Dose: Not Given Enoxaparin Sodium (Lovenox) 40 mg SC DAILY [facility] Last Admin: 06/16/16 11:07 Dose: Not Given Ciprofloxacin (Cipro 400mg/200ml Dsw) 400 mg in 200 mls @ 133 mls/hr IVPB Q12H [facility] Last Admin: 06/16/16 11:38 Dose: 133 mls/hr Lisinopril (Zestril) 10 mg PO DAILY [facility] Last Admin: 06/16/16 11:44 Dose: 10 mg Nicotine (Nicoderm Cq) 1 patch TD DAILY [facility] Last Admin: 06/16/16 11:46 Dose: 1 patch Pantoprazole Sodium (Protonix Ec Tab) 40 mg PO DAILY [facility] Last Admin: 06/16/16 11:07 Dose: Not Given Tamsulosin HCl (Flomax) 0.4 mg PO DAILY [facility] Last Admin: 06/16/16 11:06 Dose: Not Given Tramadol HCl (Ultram) 50 mg PO Q6H PRN PRN Reason: Pain, moderate (4-7) Last Admin: 06/15/16 17:36 Dose: 50 mg - Labs Labs: 06/16/16 07:47 06/16/16 07:47 PT 12.5 SECONDS (9.7-12.2) H 06/16/16 07:47 INR 1.1 06/16/16 07:47 APTT 33 SECONDS (21-34) 06/16/16 07:47 - Constitutional Appears: Well - Head Exam Head Exam: ATRAUMATIC, NORMAL INSPECTION, NORMOCEPHALIC - Eye Exam Eye Exam: EOMI, Normal appearance, PERRL Pupil Exam: NORMAL ACCOMODATION, PERRL - ENT Exam ENT Exam: Mucous Membranes Moist, Normal Exam - Neck Exam Neck Exam: Full ROM, Normal Inspection. absent: Lymphadenopathy - Respiratory Exam Respiratory Exam: Decreased Breath Sounds - Cardiovascular Exam Cardiovascular Exam: REGULAR RHYTHM, +S1, +S2 - GI/Abdominal Exam GI & Abdominal Exam: Soft, Diminished Bowel Sounds - Rectal Exam Rectal Exam: Deferred Assessment and Plan - Assessment and Plan (Free Text) Plan: s/p cystoscopy by dr. pawel keller iv antibiotic urine culture krishna same for possble procedure again tomrrow am krishna cipro
--- NOTE | 2016-06-16 23:38 | PCM.URO ---
Urology Progress Note - General General: No Complaints, Tolerating Diet - Subjective Abdominal Pain: No (feeling better) Flank Pain: No Nausea: No Vomiting: No Voiding Well: Yes Dysuria: No Hematuria: No Good Stream: Yes Weak Stream: No Stone Passed: No Dsypnea: No Chest Pain: No Fever & Chills: No - Objective Lab Studies: Reviewed Lab Results Last 24 Hours: Laboratory Results - last 24 hr 06/16/16 06/16/16 06/16/16 07:47 07:47 07:47 WBC 12.0 H RBC 5.03 Hgb 14.6 Hct 44.2 MCV 87.9 MCH 28.9 MCHC 32.9 L RDW 14.3 Plt Count 391 MPV 7.7 Neut % (Auto) 61.8 Lymph % (Auto) 26.7 Hand % (Auto) 8.1 Eos % (Auto) 2.9 Baso % (Auto) 0.5 Neut # 7.4 H Lymph # 3.2 Hand # 1.0 H Eos # 0.4 Baso # 0.1 PT 12.5 H INR 1.1 APTT 33 Sodium 140 Potassium 4.2 Chloride 104 Carbon Dioxide 25 Anion Gap 16 BUN 16 Creatinine 1.2 Est GFR ( Amer) > 60 Est GFR (Non-Af Amer) > 60 Random Glucose 87 Calcium 9.2 Total Bilirubin 0.8 AST 14 L ALT 19 L Alkaline Phosphatase 87 Total Protein 7.0 Albumin 4.1 Globulin 2.9 Albumin/Globulin Ratio 1.4 Blood Type Antibody Screen 06/16/16 07:47 WBC RBC Hgb Hct MCV MCH MCHC RDW Plt Count MPV Neut % (Auto) Lymph % (Auto) Hand % (Auto) Eos % (Auto) Baso % (Auto) Neut # Lymph # Hand # Eos # Baso # PT INR APTT Sodium Potassium Chloride Carbon Dioxide Anion Gap BUN Creatinine Est GFR ( Amer) Est GFR (Non-Af Amer) Random Glucose Calcium Total Bilirubin AST ALT Alkaline Phosphatase Total Protein Albumin Globulin Albumin/Globulin Ratio Blood Type A POSITIVE Antibody Screen Negative Intake & Output: Intake & Output 06/16/16 06/16/16 06/17/16 06:59 18:59 06:59 Intake Total 0 700 550 Balance 0 700 550 Intake: IV 700 Intake, IV Amount 250 Left Antecubital 250 Oral 0 300 Other: # Voids Urine, Voided 2 3 # Bowel Movements 0 Vital Signs: Vital Signs - 24 hr 06/16/16 06/16/16 06/16/16 00:00 08:38 13:34 Temperature 98.2 F 98 F 98.2 F Pulse Rate 60 60 57 L Respiratory 20 20 14 Rate Blood Pressure 144/80 150/88 150/91 H O2 Sat by Pulse 97 98 97 Oximetry 06/16/16 06/16/16 06/16/16 13:45 14:00 14:15 Temperature Pulse Rate 60 58 L 58 L Respiratory 18 18 19 Rate Blood Pressure 150/88 149/88 150/92 H O2 Sat by Pulse 98 99 99 Oximetry 06/16/16 06/16/16 06/16/16 14:30 14:45 16:47 Temperature 98.2 F 98.6 F Pulse Rate 59 L 64 73 Respiratory 20 20 20 Rate Blood Pressure 140/81 120/70 120/71 O2 Sat by Pulse 96 93 L 97 Oximetry Imaging Studies: Reviewed - Physical Exam Abdominal Exam: Soft, Non-Tender, Non-Distended Back: No CVA Tenderness Urine Color: Yellow - Plan Additional Information: IMP: UTI. UROLITHIASIS. PLAN: ANTIBIOTIC RX. PERCUTANEOUS NEPHROLITHOTOMY T/F. DISCUSSED W PT AND FAMILY AND STAFF - Date & Time of Note Date: 06/15/16 Time: 15:20
[2016-06-17 07:23] LABS: BASO % 0.3 % (0.0-2.0); EOS # 0.2 K/uL (0.0-0.7); EOS % 1.8 % (0.0-4.0); HEMATOCRIT 43.5 % (35.0-51.0); LYMPH # 3.1 K/uL (1.0-4.3); MEAN CELL VOLUME 88.1 fL (80.0-94.0); MEAN CORPUSCULAR HEMOGLOBIN 28.3 pg (27.0-31.0); MEAN CORPUSCULAR HGB CONC 32.1 g/dL (33.0-37.0); MEAN PLATELET VOLUME 7.6 fL (7.2-11.7); MONO # 1.5 K/uL (0.0-0.8); MONO % 11.2 % (0.0-10.0); NRBC % 0.1 % (0.0-2.0); RED CELL DISTRIBUTION WIDTH 14.5 % (11.5-14.5); WHITE BLOOD COUNT 13.4 K/uL (4.8-10.8)
[2016-06-17 07:40] LABS: CHLORIDE 100 mmol/L (98-107); SODIUM 137 mmol/L (132-148)
[2016-06-17 07:42] LABS: AST/SGOT 15 U/L (17-59); BILIRUBIN,TOTAL 1.2 mg/dL (0.2-1.3); CARBON DIOXIDE 26 mmol/L (22-30); GFR AFRICAN-AMERICAN > 60
[2016-06-17 07:43] LABS: ALB/GLOB RATIO 1.3 (1.0-2.1); ALKALINE PHOSPHATASE 86 U/L (38-126); ALT/SGPT 18 U/L (21-72); BLOOD UREA NITROGEN 18 mg/dL (9-20); CALCIUM 8.4 mg/dl (8.6-10.4); GLUCOSE,RANDOM 89 mg/dL (75-110); TOTAL PROTEIN 6.8 g/dL (6.3-8.3)
[2016-06-17] MEDS: Enoxaparin 40 mg Syringe SC SCH (09:00)
[2016-06-17] MEDS: Pantoprazole 40 mg EC Tab PO SCH (09:01)
--- NOTE | 2016-06-17 09:09 | CP.PCM.PN ---
Subjective - Date & Time of Evaluation Date of Evaluation: 06/17/16 Time of Evaluation: 09:20 - Subjective Subjective: clinically same Objective - Vital Signs/Intake and Output Vital Signs (last 24 hours): Temp Pulse Resp BP Pulse Ox 98.1 F 68 20 125/77 96 06/17/16 07:15 06/17/16 07:15 06/17/16 07:15 06/17/16 07:15 06/17/16 07:15 Intake and Output: 06/17/16 06/17/16 06:59 18:59 Intake Total 650 Output Total 350 Balance 300 - Medications Medications: Current Medications Allopurinol (Zyloprim) 300 mg PO DAILY [facility] Last Admin: 06/17/16 09:01 Dose: Not Given Carvedilol (Coreg) 6.25 mg PO BID [facility] Last Admin: 06/17/16 09:00 Dose: Not Given Citalopram Hydrobromide (Celexa) 20 mg PO DAILY [facility] Last Admin: 06/17/16 09:00 Dose: Not Given Enoxaparin Sodium (Lovenox) 40 mg SC DAILY [facility] Last Admin: 06/17/16 09:00 Dose: Not Given Ciprofloxacin (Cipro 400mg/200ml Dsw) 400 mg in 200 mls @ 133 mls/hr IVPB Q12H [facility] Last Admin: 06/16/16 22:01 Dose: 133 mls/hr Lisinopril (Zestril) 10 mg PO DAILY [facility] Last Admin: 06/17/16 09:01 Dose: Not Given Nicotine (Nicoderm Cq) 1 patch TD DAILY [facility] Last Admin: 06/17/16 09:01 Dose: Not Given Pantoprazole Sodium (Protonix Ec Tab) 40 mg PO DAILY [facility] Last Admin: 06/17/16 09:01 Dose: Not Given Tamsulosin HCl (Flomax) 0.4 mg PO DAILY [facility] Last Admin: 06/17/16 09:00 Dose: Not Given Tramadol HCl (Ultram) 50 mg PO Q6H PRN PRN Reason: Pain, moderate (4-7) Last Admin: 06/17/16 00:40 Dose: 50 mg - Labs Labs: 06/17/16 07:17 06/17/16 07:17 PT 12.5 SECONDS (9.7-12.2) H 06/16/16 07:47 INR 1.1 06/16/16 07:47 APTT 33 SECONDS (21-34) 06/16/16 07:47 - Constitutional Appears: Well - Head Exam Head Exam: ATRAUMATIC, NORMAL INSPECTION, NORMOCEPHALIC - Eye Exam Eye Exam: EOMI, Normal appearance, PERRL Pupil Exam: NORMAL ACCOMODATION, PERRL - ENT Exam ENT Exam: Mucous Membranes Moist, Normal Exam - Neck Exam Neck Exam: Full ROM, Normal Inspection. absent: Lymphadenopathy - Respiratory Exam Respiratory Exam: Decreased Breath Sounds - Cardiovascular Exam Cardiovascular Exam: REGULAR RHYTHM, +S1, +S2 - GI/Abdominal Exam GI & Abdominal Exam: Soft, Diminished Bowel Sounds - Rectal Exam Rectal Exam: Deferred Assessment and Plan - Assessment and Plan (Free Text) Plan: f/u with caustic mixer lithotripsy is scheduled today fUrine cx negative blood cx negative Coreg Lovenox krishna. antibiotcs
[2016-06-17] MEDS ORDERED: Iohexol 240 200 ML IJ ONE (10:29)
[2016-06-17] MEDS ORDERED: Bupivacaine 0.5% Inj(30mL) ONE (10:29)
[2016-06-17] MEDS ORDERED: Iohexol 240 (50 ml) ONE ×3 (10:30→11:29)
[2016-06-17] MEDS ORDERED: Lactated Ringer's 1,000 ML IV ONE (10:37)
[2016-06-17] MEDS ORDERED: Propofol 10 mg/ml Inj (20 ML) ONE (10:43)
[2016-06-17] MEDS ORDERED: Midazolam 2 MG/2 ML VIAL ONE (10:46)
[2016-06-17] MEDS: Ciprofloxacin 400mg/200ml D5W 400 MG/200 ML BAG IVPB SCH ×2 (10:53→22:21)
[2016-06-17] MEDS ORDERED: Gentamicin 80 mg in 0.9% NS 160 MG/200 ML BAG IVPB ONE (10:56)
[2016-06-17] MEDS ORDERED: Phenylephrine 10 mg/ml Inj ONE (11:24)
[2016-06-17] MEDS ORDERED: ePHEDrine 50 mg/ml Inj ONE (11:52)
[2016-06-17] MEDS ORDERED: Neostigmine Methylsulfate 3mg/3ml Syringe IV ONE (12:24)
[2016-06-17] MEDS ORDERED: Sodium Chloride 0.9% 1,000 ML IV ONE (12:55)
[2016-06-17] MEDS ORDERED: Potassium Ch 20mEq in D5-1/2NS 1,000 ML IV SCH (13:15)
--- NOTE | 2016-06-17 13:39 | PCM.SURG1 ---
Surgeon's Initial Post Op Note - Surgeon's Notes Surgeon: Luis AWAD Manager Of Business Operations: Saundra BAI Type of Anesthesia: General Endo Pre-Operative Diagnosis: L RENAL AND URETERAL CALCULI Operative Findings: SAME Post-Operative Diagnosis: L RENAL CALCULI. L URETERAL CALCULUS Operation Performed: L PERCUTANEOUS NEPHROLITHOTOMY. ULTRASONIC LITHOTRIPSY. FLEXIBLE NEPHROSCOPY AND ANTEGRADE URETEROSCOPY. NEPRHOSTOGRAM Specimen/Specimens Removed: L RENAL AND URETERAL STONE Estimated Blood Loss: EBL {In ML}: 100 Blood Products Given: N/A Post-Op Condition: Good Date of Surgery/Procedure: 06/17/16 Time of Surgery/Procedure: 13:00
[2016-06-17] MEDS ORDERED: Gentamicin 80 mg in 0.9% NS 80 MG/100 ML BAG IVPB ONE ×2 (14:00→16:00)
--- NOTE | 2016-06-17 14:11 | RAD ---
PROCEDURE: Fluoroscopy up to 1 hr. HISTORY: Left renal calculi. COMPARISON: None TECHNIQUE: Standard protocol for this study/examination. FINDINGS: Total fluoroscopic time (continuous mode) utilized during the procedure: 219.9 seconds. IMPRESSION: Less than 1 hr fluoroscopic time utilized during performance of the procedure.
[2016-06-17] MEDS: Sodium Chloride 0.9% 1,000 ML IV SCH ×2 (14:29→23:15)
[2016-06-17] MEDS: Potassium Ch 20mEq in D5-1/2NS 1,000 ML IV SCH (14:49)
[2016-06-18] MEDS: Potassium Ch 20mEq in D5-1/2NS 1,000 ML IV SCH ×4 (01:00→21:40)
[2016-06-18 07:37] LABS: MEAN CELL VOLUME 88.7 fL (80.0-94.0); MEAN CORPUSCULAR HGB CONC 32.7 g/dL (33.0-37.0); MEAN PLATELET VOLUME 8.1 fL (7.2-11.7); RED CELL DISTRIBUTION WIDTH 14.6 % (11.5-14.5); WHITE BLOOD COUNT 12.6 K/uL (4.8-10.8)
[2016-06-18 07:58] LABS: CHLORIDE 100 mmol/L (98-107); SODIUM 135 mmol/L (132-148)
[2016-06-18] MEDS ORDERED: Gentamicin 160 MG in Sodium Chloride 0.9% 100 ML IVPB ONE (08:00)
[2016-06-18 08:01] LABS: BLOOD UREA NITROGEN 16 mg/dL (9-20); CARBON DIOXIDE 25 mmol/L (22-30); GFR AFRICAN-AMERICAN > 60
[2016-06-18 08:02] LABS: CALCIUM 7.7 mg/dl (8.6-10.4); GLUCOSE,RANDOM 92 mg/dL (75-110)
[2016-06-18] MEDS: Pantoprazole 40 mg EC Tab PO SCH (10:49)
[2016-06-18] MEDS: Enoxaparin 40 mg Syringe SC SCH (10:49)
[2016-06-18] MEDS: Ciprofloxacin 400mg/200ml D5W 400 MG/200 ML BAG IVPB SCH ×3 (11:25→22:04)
[2016-06-18] MEDS: Sodium Chloride 0.9% 1,000 ML IV SCH ×2 (11:27→19:30)
--- NOTE | 2016-06-18 11:45 | CP.PCM.PN ---
Subjective - Date & Time of Evaluation Date of Evaluation: 06/18/16 Time of Evaluation: 09:40 - Subjective Subjective: clinically same Objective - Vital Signs/Intake and Output Vital Signs (last 24 hours): Temp Pulse Resp BP Pulse Ox 98.1 F 82 20 132/82 96 06/18/16 08:54 06/18/16 08:54 06/18/16 08:54 06/18/16 08:54 06/18/16 08:54 Intake and Output: 06/18/16 06/18/16 06:59 18:59 Intake Total 2100 Output Total 1875 Balance 225 - Medications Medications: Current Medications Allopurinol (Zyloprim) 300 mg PO DAILY [facility] Last Admin: 06/18/16 10:49 Dose: 300 mg Carvedilol (Coreg) 6.25 mg PO BID [facility] Last Admin: 06/18/16 10:49 Dose: 6.25 mg Citalopram Hydrobromide (Celexa) 20 mg PO DAILY [facility] Last Admin: 06/18/16 10:49 Dose: 20 mg Enoxaparin Sodium (Lovenox) 40 mg SC DAILY [facility] Last Admin: 06/18/16 10:49 Dose: 40 mg Ciprofloxacin (Cipro 400mg/200ml Dsw) 400 mg in 200 mls @ 133 mls/hr IVPB Q12H [facility] Last Admin: 06/18/16 11:25 Dose: 133 mls/hr Sodium Chloride (Sodium Chloride 0.9%) 1,000 mls @ 100 mls/hr IV .Q10H [facility] Last Admin: 06/18/16 11:27 Dose: Not Given Potassium Chloride/Dextrose/Sod Cl (Potassium Chl 20 Meq In D5-1/2ns) 1,000 mls @ 100 mls/hr IV .Q10H [facility] Last Admin: 06/18/16 11:27 Dose: Not Given Lisinopril (Zestril) 10 mg PO DAILY [facility] Last Admin: 06/18/16 10:49 Dose: 10 mg Nicotine (Nicoderm Cq) 1 patch TD DAILY [facility] Last Admin: 06/18/16 10:49 Dose: 1 patch Pantoprazole Sodium (Protonix Ec Tab) 40 mg PO DAILY [facility] Last Admin: 06/18/16 10:49 Dose: 40 mg Tamsulosin HCl (Flomax) 0.4 mg PO DAILY [facility] Last Admin: 06/18/16 10:49 Dose: 0.4 mg Tramadol HCl (Ultram) 50 mg PO Q6H PRN PRN Reason: Pain, moderate (4-7) Last Admin: 06/17/16 21:17 Dose: 50 mg - Labs Labs: 06/18/16 07:18 06/18/16 07:18 PT 12.5 SECONDS (9.7-12.2) H 06/16/16 07:47 INR 1.1 06/16/16 07:47 APTT 33 SECONDS (21-34) 06/16/16 07:47 - Constitutional Appears: Well - Head Exam Head Exam: ATRAUMATIC, NORMAL INSPECTION, NORMOCEPHALIC - Eye Exam Eye Exam: EOMI, Normal appearance, PERRL Pupil Exam: NORMAL ACCOMODATION, PERRL - ENT Exam ENT Exam: Mucous Membranes Moist, Normal Exam - Neck Exam Neck Exam: Full ROM, Normal Inspection. absent: Lymphadenopathy - Respiratory Exam Respiratory Exam: Decreased Breath Sounds - Cardiovascular Exam Cardiovascular Exam: REGULAR RHYTHM, +S1, +S2 - GI/Abdominal Exam GI & Abdominal Exam: Soft, Diminished Bowel Sounds - Rectal Exam Rectal Exam: Deferred Assessment and Plan - Assessment and Plan (Free Text) Plan: s/p percutananeous nephrostomy done draining blood pt has severe bilateral hydronephro with big stone in prox ureter krishna. f/u with [facility]p conit. antibiotics
[2016-06-18 17:38] LABS: RBC URINE 3 /hpf (0-3); TRANSITIONAL EPITHIAL < 1 /hpf (0-3); URINE BACTERIA RARE (<OCC); URINE BILIRUBIN NEGATIVE (NEGATIVE); URINE BLOOD 3+ (NEGATIVE); URINE COLOR Straw (YELLOW); URINE GLUCOSE (UA) NORMAL (Normal); URINE KETONE NEGATIVE (NEGATIVE); URINE LEUKOCYTE ESTERASE 1+ Leu/uL (Negative); URINE PROTEIN NEGATIVE (NEGATIVE); URINE UROBILINOGEN NORMAL mg/dL (0.2-1.0); WBC URINE 7 /hpf (0-5)
[2016-06-18] MEDS: Tramadol 25 mg PO PRN (20:30)
[2016-06-19] MEDS: Tramadol 25 mg PO PRN ×3 (04:56→16:29)
[2016-06-19] MEDS: Enoxaparin 40 mg Syringe SC SCH (10:03)
[2016-06-19] MEDS: Pantoprazole 40 mg EC Tab PO SCH (10:03)
[2016-06-19] MEDS: Ciprofloxacin 400mg/200ml D5W 400 MG/200 ML BAG IVPB SCH ×2 (10:04→23:07)
[2016-06-19] MEDS: Potassium Ch 20mEq in D5-1/2NS 1,000 ML IV SCH (10:22)
--- NOTE | 2016-06-19 12:42 | CP.PCM.PN ---
Subjective - Date & Time of Evaluation Date of Evaluation: 06/19/16 Time of Evaluation: 09:20 - Subjective Subjective: clinically same Objective - Vital Signs/Intake and Output Vital Signs (last 24 hours): Temp Pulse Resp BP Pulse Ox 98.2 F 68 18 132/75 98 06/19/16 07:00 06/19/16 07:00 06/19/16 07:00 06/19/16 07:00 06/19/16 07:00 Intake and Output: 06/19/16 06/19/16 06:59 18:59 Intake Total 2980 1000 Output Total 2070 Balance 910 1000 - Medications Medications: Current Medications Allopurinol (Zyloprim) 300 mg PO DAILY [facility] Last Admin: 06/19/16 10:03 Dose: 300 mg Carvedilol (Coreg) 6.25 mg PO BID [facility] Last Admin: 06/19/16 10:03 Dose: 6.25 mg Citalopram Hydrobromide (Celexa) 20 mg PO DAILY [facility] Last Admin: 06/19/16 10:08 Dose: 20 mg Enoxaparin Sodium (Lovenox) 40 mg SC DAILY [facility] Last Admin: 06/19/16 10:03 Dose: 40 mg Ciprofloxacin (Cipro 400mg/200ml Dsw) 400 mg in 200 mls @ 133 mls/hr IVPB Q12H [facility] Lisinopril (Zestril) 10 mg PO DAILY [facility] Last Admin: 06/19/16 10:03 Dose: 10 mg Nicotine (Nicoderm Cq) 1 patch TD DAILY [facility] Last Admin: 06/19/16 10:08 Dose: 1 patch Pantoprazole Sodium (Protonix Ec Tab) 40 mg PO DAILY [facility] Last Admin: 06/19/16 10:03 Dose: 40 mg Tamsulosin HCl (Flomax) 0.4 mg PO DAILY [facility] Last Admin: 06/19/16 10:03 Dose: 0.4 mg Tramadol HCl (Ultram) 50 mg PO Q6H PRN PRN Reason: Pain, moderate (4-7) Last Admin: 06/19/16 10:18 Dose: 50 mg - Labs Labs: 06/18/16 07:18 06/18/16 07:18 PT 12.5 SECONDS (9.7-12.2) H 06/16/16 07:47 INR 1.1 06/16/16 07:47 APTT 33 SECONDS (21-34) 06/16/16 07:47 - Constitutional Appears: Well - Head Exam Head Exam: ATRAUMATIC, NORMAL INSPECTION, NORMOCEPHALIC - Eye Exam Eye Exam: EOMI, Normal appearance, PERRL Pupil Exam: NORMAL ACCOMODATION, PERRL - ENT Exam ENT Exam: Mucous Membranes Moist, Normal Exam - Neck Exam Neck Exam: Full ROM, Normal Inspection. absent: Lymphadenopathy - Respiratory Exam Respiratory Exam: Decreased Breath Sounds - Cardiovascular Exam Cardiovascular Exam: REGULAR RHYTHM, +S1, +S2 - GI/Abdominal Exam GI & Abdominal Exam: Soft, Diminished Bowel Sounds - Rectal Exam Rectal Exam: Deferred Assessment and Plan (1) Hematuria Status: Acute (2) Hydronephrosis Status: Acute (3) Renal colic Status: Acute (4) Urinary tract infection Status: Acute - Assessment and Plan (Free Text) Plan: s/p percutananeous nephrostomy done draining blood pt has severe bilateral hydronephro with big stone in prox ureter further work up as per dr. armas may dicsharge pt if o with
[2016-06-19 16:52] VITALS: RESP 20; O2SAT 97
--- NOTE | 2016-06-19 20:26 | OP ---
PROCEDURE DATE: 06/17/2016 PREOPERATIVE DIAGNOSES: Left renal calculi. Left ureteral calculi. PROCEDURES: Left percutaneous nephrolithotomy. Ultrasonic lithotripsy. Left antegrade ureteroscopy and flexible nephroscopy. Left nephrostogram. OPERATING SURGEON: Dr. Erlinda Baldwin. PROCEDURE FOLLOWS: The patient received perioperative antibiotics. The patient was in the supine position. A Acuña catheter was inserted per urethra. General anesthesia was administered via endot mehdi tube. The patient was placed in the prone position. The thoracic cushions were appropriately placed. All pressure points were appropriately padded. The procedure was performed under fluoroscopic control with C-arm as well as video endoscopic control . The left flank was prepped and draped in a sterile fashion. A 0.35 inch guidewire was inserted into the left nephrostomy tube. The nephrostomy tube was removed. The wire was coiled in the dilated collecting system. The nephrostomy tract was dilated with flexible fascial dilators starting with 6-Jamaican up to 10-Fren ch. Thereafter, the 10-Jamaican safety guidewire introducer was placed. The 12-Jamaican sleeve was pass ed coaxially over the 10-Jamaican catheter. A second guidewire was inserted. Balloon dilation of nephrostomy tract was performed. The tract was dilated up to a size 30-Jamaican. Thereafter, the 34-Jamaican Amplatz sheath was inserted over the balloon into the renal pelvis. Nephroscopy was performed. The 24-Jamaican rigid nephroscope was inserted. Using the 0 degree offset lens, the kidney was inspected. The multilength ureteral stent was identified and grasped with rigid grasping forceps and brought thr ough the Amplatz sheath. A guidewire was inserted through the ureteral stent and was passed antegrad e to the bladder. Proper position was confirmed with fluoroscopy. Using the double lumen ureteral catheter, a second guidewire was passed down to the level of the blad abby later in the procedure. Nephroscopy was performed. The stones within the ureter were identified. The stones were noted to b e partially fragmented. The stones were brittle. The stones were yellow and white in color. The st ones were removed and fragmented using the ultrasonic lithotripter. Attention was then turned to the lower pole where additional stones were identified and broken and re moved. There were stones also noted in the upper pole as well. The stones were similar appearance a nd consistency and were fragmented and removed. Antegrade ureteroscopy was performed with the flexible nephroscope. The ureteropelvic junction was i ntact. There were no residual stones identified within the proximal ureter. The fluoroscopic views were recorded and saved. Video endoscopic views were recorded as well. The nephroscope was removed. A 24-Jamaican reentry nephrostomy tube was inserted over the safety guidewire. The 24-Jamaican nephrosto my tube was in proper position as was its distal tail. Nephrostogram confirmed proper position of the tube. The Amplatz sheath was removed. The nephrostomy tube was secured to the skin with interrupted suture s of silk. Marcaine 0.5% was infiltrated along the course of the nephrostomy tube for postoperative analgesic. An additional intercostal nerve block was performed with Marcaine. A sterile dressing was applied. The patient tolerated the procedure without complication. ESTIMATED BLOOD LOSS: 100 mL. The patient was returned to the supine position and subsequently transferred to recovery room in sati sfactory condition. Erlinda Baldwin MD cc: [phone] TT: 06/19/2016 20:25:56 in
[2016-06-20] MEDS: Tramadol 25 mg PO PRN ×2 (00:34→10:28)
[2016-06-20 09:09] VITALS: BP 125/69; PULSE 83; TEMP 98.1
[2016-06-20] MEDS: Pantoprazole 40 mg EC Tab PO SCH (10:08)
[2016-06-20] MEDS: Ciprofloxacin 400mg/200ml D5W 400 MG/200 ML BAG IVPB SCH (10:10)
[2016-06-20] MEDS: Enoxaparin 40 mg Syringe SC SCH (10:11)
--- NOTE | 2016-06-20 11:00 | PCM.URO ---
Urology Progress Note - General General: No Complaints, Tolerating Diet - Subjective Abdominal Pain: No Flank Pain: No Nausea: No Voiding Well: Yes Dysuria: No Good Stream: Yes Stone Passed: Yes (PASSED VIA NT AND VIA URETHRA) Dsypnea: No Chest Pain: No Fever & Chills: No - Objective Intake & Output: Intake & Output 06/19/16 06/20/16 06/20/16 18:59 06:59 18:59 Intake Total 1000 320 Output Total 1060 625 Balance -60 -305 Intake: Intake, IV Amount 800 Right Antecubital 800 Oral 200 120 Other 200 Output: Drainage 110 225 Left 110 225 Urine 950 400 Urine, Voided 950 400 Other: # Bowel Movements 0 Vital Signs: Vital Signs - 24 hr 06/19/16 06/20/16 06/20/16 15:00 00:00 08:00 Temperature 99.0 F 98.5 F 98.1 F Pulse Rate 70 73 83 Respiratory 20 20 20 Rate Blood Pressure 105/64 111/71 125/69 O2 Sat by Pulse 97 97 97 Oximetry - Physical Exam Abdominal Exam: Soft, Non-Tender, Non-Distended Wound: Healing Well Dressing: Intact Back: No CVA Tenderness Extremities: Normal: Bilateral - Plan Catheter Care: Yes Intake & Output: Yes Additional Information: CT SCAN. DISCUSSED WITH PT AND . OUT F/U - Date & Time of Note Date: 06/20/16 Time: 11:00
[2016-06-20 11:45] LABS: BASO % 0.3 % (0.0-2.0); EOS # 0.3 K/uL (0.0-0.7); EOS % 2.2 % (0.0-4.0); LYMPH # 2.7 K/uL (1.0-4.3); LYMPH % 18.3 % (20.0-40.0); MEAN CELL VOLUME 87.5 fL (80.0-94.0); MEAN CORPUSCULAR HEMOGLOBIN 28.7 pg (27.0-31.0); MEAN CORPUSCULAR HGB CONC 32.8 g/dL (33.0-37.0); MEAN PLATELET VOLUME 7.9 fL (7.2-11.7); MONO # 1.2 K/uL (0.0-0.8); MONO % 8.4 % (0.0-10.0); RED CELL DISTRIBUTION WIDTH 14.5 % (11.5-14.5); WHITE BLOOD COUNT 14.5 K/uL (4.8-10.8)
[2016-06-20 11:50] LABS: CHLORIDE 97 mmol/L (98-107); POTASSIUM 3.8 mmol/L (3.6-5.2); SODIUM 135 mmol/L (132-148)
[2016-06-20 11:52] LABS: ALB/GLOB RATIO 1.3 (1.0-2.1); ALKALINE PHOSPHATASE 87 U/L (38-126); AST/SGOT 14 U/L (17-59); BILIRUBIN,TOTAL 0.8 mg/dL (0.2-1.3); CARBON DIOXIDE 25 mmol/L (22-30); GFR AFRICAN-AMERICAN > 60; TOTAL PROTEIN 7.6 g/dL (6.3-8.3)
[2016-06-20 11:53] LABS: ALT/SGPT 27 U/L (21-72); BLOOD UREA NITROGEN 14 mg/dL (9-20); CALCIUM 9.2 mg/dl (8.6-10.4); GLUCOSE,RANDOM 139 mg/dL (75-110)
--- NOTE | 2016-06-20 11:54 | CT ---
PROCEDURE: CT Abdomen and Pelvis without intravenous contrast HISTORY: urolithiasis COMPARISON: 06/11/16. TECHNIQUE: Technique. Contrast Dose: Radiation dose: Total exam DLP = 978 mGy-cm. This CT exam was performed using one or more of the following dose reduction techniques: Automated exposure control, adjustment of the mA and/or kV according to patient size, and/or use of iterative reconstruction technique. FINDINGS: LOWER THORAX: Unremarkable. LIVER: Unremarkable. No gross lesion or ductal dilatation. GALLBLADDER AND BILE DUCTS: Unremarkable. PANCREAS: Unremarkable. No gross lesion or ductal dilatation. SPLEEN: Unremarkable. ADRENALS: Unremarkable. No mass. KIDNEYS AND URETERS: Re-demonstration of bilateral ureteral stents. The left stent does not extend into the urinary bladder. New left external nephrostomy with re-demonstration of dense calcifications possibly representing staghorn calculi in the mid and lower pole left kidney. Bilateral hydronephrosis. Perinephric fat infiltration on the left. VASCULATURE: Unremarkable. No aortic aneurysm. BOWEL: Unremarkable. No obstruction. No gross mural thickening. APPENDIX: Unremarkable. Normal appendix. PERITONEUM: Unremarkable. No free fluid. No free air. LYMPH NODES: Unremarkable. No enlarged lymph nodes. BLADDER: Unremarkable. REPRODUCTIVE: Unremarkable. BONES: No acute fracture. OTHER FINDINGS: None. IMPRESSION: Re-demonstration of bilateral ureteral stents. The left stent does not extend into the urinary bladder. New left external nephrostomy with re-demonstration of dense calcifications possibly representing staghorn calculi in the mid and lower pole left kidney. No evidence of distal ureteral calculi. Previously noted large left ureteral calculus no longer visualized. Bilateral hydronephrosis. Perinephric fat infiltration on the left.
--- NOTE | 2016-06-20 13:15 | CP.PCM.PN ---
Subjective - Date & Time of Evaluation Date of Evaluation: 06/20/16 Time of Evaluation: 09:20 - Subjective Subjective: clinically same Objective - Vital Signs/Intake and Output Vital Signs (last 24 hours): Temp Pulse Resp BP Pulse Ox 98.1 F 83 20 125/69 97 06/20/16 08:00 06/20/16 08:00 06/20/16 08:00 06/20/16 08:00 06/20/16 08:00 Intake and Output: 06/20/16 06/20/16 06:59 18:59 Intake Total 320 Output Total 625 Balance -305 - Medications Medications: Current Medications Allopurinol (Zyloprim) 300 mg PO DAILY [facility] Last Admin: 06/20/16 10:08 Dose: 300 mg Carvedilol (Coreg) 6.25 mg PO BID [facility] Last Admin: 06/20/16 10:08 Dose: 6.25 mg Citalopram Hydrobromide (Celexa) 20 mg PO DAILY [facility] Last Admin: 06/20/16 10:08 Dose: 20 mg Enoxaparin Sodium (Lovenox) 40 mg SC DAILY [facility] Last Admin: 06/20/16 10:11 Dose: 40 mg Ciprofloxacin (Cipro 400mg/200ml Dsw) 400 mg in 200 mls @ 133 mls/hr IVPB Q12H [facility] Last Admin: 06/20/16 10:10 Dose: 133 mls/hr Lisinopril (Zestril) 10 mg PO DAILY [facility] Last Admin: 06/20/16 10:08 Dose: 10 mg Nicotine (Nicoderm Cq) 1 patch TD DAILY [facility] Last Admin: 06/20/16 10:08 Dose: 1 patch Pantoprazole Sodium (Protonix Ec Tab) 40 mg PO DAILY [facility] Last Admin: 06/20/16 10:08 Dose: 40 mg Tamsulosin HCl (Flomax) 0.4 mg PO DAILY [facility] Last Admin: 06/20/16 10:08 Dose: 0.4 mg Tramadol HCl (Ultram) 50 mg PO Q6H PRN PRN Reason: Pain, moderate (4-7) Last Admin: 06/20/16 10:28 Dose: 50 mg - Labs Labs: 06/20/16 11:33 06/20/16 11:33 PT 12.5 SECONDS (9.7-12.2) H 06/16/16 07:47 INR 1.1 06/16/16 07:47 APTT 33 SECONDS (21-34) 06/16/16 07:47 - Constitutional Appears: Well - Head Exam Head Exam: ATRAUMATIC, NORMAL INSPECTION, NORMOCEPHALIC - Eye Exam Eye Exam: EOMI, Normal appearance, PERRL Pupil Exam: NORMAL ACCOMODATION, PERRL - ENT Exam ENT Exam: Mucous Membranes Moist, Normal Exam - Neck Exam Neck Exam: Full ROM, Normal Inspection. absent: Lymphadenopathy - Respiratory Exam Respiratory Exam: Decreased Breath Sounds - Cardiovascular Exam Cardiovascular Exam: REGULAR RHYTHM, +S1, +S2 - GI/Abdominal Exam GI & Abdominal Exam: Soft, Diminished Bowel Sounds - Rectal Exam Rectal Exam: Deferred Assessment and Plan (1) Hematuria Status: Acute (2) Hydronephrosis Status: Acute (3) Renal colic Status: Acute (4) Urinary tract infection Status: Acute - Assessment and Plan (Free Text) Plan: pt. is ready for discharge today f/u with [facility] homecare at [facility]. meds as ordered
== END 2016-06-20 15:50 | disposition home or self-care (01) | DRG 304 ==
LOC: C.ER 18:36 → C.9E 21:40 → C.3T 22:24
PROVIDERS: ADMIT Internal Medicine Nephrology; ATTEND Internal Medicine Nephrology
PROC: 0T9430Z Drainage of Left Kidney Pelvis with Drainage Device, Percutaneous Approach (ICD-10-PCS; 2016-06-16)
PROC: 0TC73ZZ Extirpation of Matter from Left Ureter, Percutaneous Approach (ICD-10-PCS; 2016-06-17)
PROC: 3E0T3CZ (ICD-10-PCS; 2016-06-17)
PROC: 0TC43ZZ Extirpation of Matter from Left Kidney Pelvis, Percutaneous Approach (ICD-10-PCS; principal; 2016-06-17 10:00)
DX: N20.2 Calculus of kidney with calculus of ureter (principal); N13.6 Pyonephrosis; I10 Essential (primary) hypertension; N39.0 Urinary tract infection, site not specified; F17.210 Nicotine dependence, cigarettes, uncomplicated; Z91.19 Patient's noncompliance with other medical treatment and regimen; Z87.442 Personal history of urinary calculi

== ENCOUNTER 2016-06-24 09:57 | Day surgery (SDC) | payer OTHER ==
[2016-06-23 12:48] VITALS: BMI 31.1
[2016-06-24] MEDS ORDERED: Ciprofloxacin 400mg/200ml D5W 0 MG/0 ML BAG IVPB ONE (11:20)
[2016-06-24] MEDS ORDERED: cefTRIAXone IV 1 gm in Dextros 50 ML IVPB ONE (11:21)
[2016-06-24] MEDS ORDERED: Iohexol 240 200 ML IJ ONE (11:21)
[2016-06-24] MEDS ORDERED: Bupivacaine HCl 0.5% PF (10 ml) Inj ONE ×2 (11:28)
[2016-06-24] MEDS ORDERED: Lactated Ringer's 1,000 ML IV ONE ×2 (11:30→12:50)
[2016-06-24] MEDS ORDERED: Gentamicin 80 mg in 0.9% NS 160 MG/200 ML BAG IVPB ONE (11:30)
[2016-06-24] MEDS ORDERED: Propofol 10 mg/ml Inj (20 ML) ONE ×2 (11:31→11:32)
[2016-06-24] MEDS ORDERED: Midazolam 2 MG/2 ML VIAL ONE (11:31)
[2016-06-24] MEDS ORDERED: HYDROmorphone 0.5 mg/0.5 ml ISec IVP PRN (12:57)
--- NOTE | 2016-06-24 13:32 | PCM.SURG1 ---
Surgeon's Initial Post Op Note - Surgeon's Notes Surgeon: Luis AWAD Blade Grader Operator: NONE Type of Anesthesia: General Endo Pre-Operative Diagnosis: L RENAL CALCULI Operative Findings: SAME Post-Operative Diagnosis: SAME Operation Performed: L PERCUTANEOUS. NEPHROLITHOTOMY,. ULTRASONIC LITHOTRIPSY Specimen/Specimens Removed: URINE. STONES Estimated Blood Loss: EBL {In ML}: 100 Blood Products Given: N/A Post-Op Condition: Good Date of Surgery/Procedure: 06/24/16 Time of Surgery/Procedure: 13:15
--- NOTE | 2016-06-24 13:45 | RAD ---
PROCEDURE: Fluoroscopy up to 1 hr. HISTORY: LEFT HYDRO LITHIASIS COMPARISON: None TECHNIQUE: Standard protocol for this study/examination. FINDINGS: Total fluoroscopic time (continuous mode) utilized during the procedure: 129.3 seconds IMPRESSION: Less than 1 hr fluoroscopic time utilized during performance of the procedure.
[2016-06-24] MEDS: Potassium Ch 20mEq in D5-1/2NS 1,000 ML IV SCH (15:00)
[2016-06-24] MEDS ORDERED: Oxycodone/Acetaminophen 5/325 mg Tab PO PRN (16:22)
[2016-06-24] MEDS: Oxycodone/Acetaminophen 5/325 mg Tab PO PRN ×2 (18:20→23:33)
--- NOTE | 2016-06-24 22:01 | CP.PCM.HP ---
Past Patient History - Infectious Disease Hx of Infectious Diseases: None - Past Medical History & Family History Past Medical History?: Yes - Past Social History Smoking Status: Former Smoker - CARDIAC Hx Cardiac Disorders: Yes Hx Hypercholesterolemia: Yes Hx Hypertension: Yes - PULMONARY Hx Respiratory Disorders: No - NEUROLOGICAL Hx Neurological Disorder: No - HEENT Hx HEENT Problems: No - RENAL Hx Chronic Kidney Disease: Yes Hx Kidney Stones: Yes - ENDOCRINE/METABOLIC Hx Endocrine Disorders: No - HEMATOLOGICAL/ONCOLOGICAL Hx Blood Disorders: No - INTEGUMENTARY Hx Dermatological Problems: No - MUSCULOSKELETAL/RHEUMATOLOGICAL Hx Musculoskeletal Disorders: No Hx Falls: No - GASTROINTESTINAL Hx Gastrointestinal Disorders: No - GENITOURINARY/GYNECOLOGICAL Hx Genitourinary Disorders: Yes Other/Comment: Kidney stone, left - PSYCHIATRIC Hx Psychophysiologic Disorder: Yes Hx Anxiety: Yes Hx Depression: Yes Hx Substance Use: No - SURGICAL HISTORY Hx Surgeries: Yes Other/Comment: TURP. HX: 06/16/16-LEFT NEPHROSTOMY TUBE INSERTED - ANESTHESIA Hx Anesthesia: Yes Hx Anesthesia Reactions: No Hx Malignant Hyperthermia: No Has any member of the family had a problem w/ anesthesia?: No Meds Allergies/Adverse Reactions: Allergies Allergy/AdvReac Type Severity Reaction Status Date / Time No Known Allergies Allergy Verified 06/13/16 18:50 Results - Vital Signs Recent Vital Signs: Last Vital Signs Temp 98.2 F 06/24/16 17:30 Pulse 78 06/24/16 17:30 Resp 18 06/24/16 17:30 BP 111/67 06/24/16 17:30 Pulse Ox 100 06/24/16 17:30 Assessment & Plan - Assessment and Plan (Free Text) Plan: urology cipro [facility] same flomax followup with dr. josue [facility]
--- NOTE | 2016-06-24 22:08 | CP.PCM.CON ---
Past Patient History - Infectious Disease Hx of Infectious Diseases: None - Past Medical History & Family History Past Medical History?: Yes - Past Social History Smoking Status: Former Smoker - CARDIAC Hx Cardiac Disorders: Yes Hx Hypercholesterolemia: Yes Hx Hypertension: Yes - PULMONARY Hx Respiratory Disorders: No - NEUROLOGICAL Hx Neurological Disorder: No - HEENT Hx HEENT Problems: No - RENAL Hx Chronic Kidney Disease: Yes Hx Kidney Stones: Yes - ENDOCRINE/METABOLIC Hx Endocrine Disorders: No - HEMATOLOGICAL/ONCOLOGICAL Hx Blood Disorders: No - INTEGUMENTARY Hx Dermatological Problems: No - MUSCULOSKELETAL/RHEUMATOLOGICAL Hx Musculoskeletal Disorders: No Hx Falls: No - GASTROINTESTINAL Hx Gastrointestinal Disorders: No - GENITOURINARY/GYNECOLOGICAL Hx Genitourinary Disorders: Yes Other/Comment: Kidney stone, left - PSYCHIATRIC Hx Psychophysiologic Disorder: Yes Hx Anxiety: Yes Hx Depression: Yes Hx Substance Use: No - SURGICAL HISTORY Hx Surgeries: Yes Other/Comment: TURP. HX: 06/16/16-LEFT NEPHROSTOMY TUBE INSERTED - ANESTHESIA Hx Anesthesia: Yes Hx Anesthesia Reactions: No Hx Malignant Hyperthermia: No Has any member of the family had a problem w/ anesthesia?: No Meds Allergies/Adverse Reactions: Allergies Allergy/AdvReac Type Severity Reaction Status Date / Time No Known Allergies Allergy Verified 06/13/16 18:50 - Medications Medications: Current Medications Allopurinol (Zyloprim) 300 mg PO DAILY [facility] Carvedilol (Coreg) 6.25 mg PO BID [facility] Citalopram Hydrobromide (Celexa) 20 mg PO DAILY [facility] Potassium Chloride/Dextrose/Sod Cl (Potassium Chl 20 Meq In D5-1/2ns) 1,000 mls @ 100 mls/hr IV .Q10H [facility] Last Admin: 06/24/16 15:00 Dose: 200 mls Ciprofloxacin (Cipro 400mg/200ml Dsw) 400 mg in 200 mls @ 133 mls/hr IVPB Q12H [facility] Lisinopril (Zestril) 10 mg PO DAILY [facility] Oxycodone/Acetaminophen (Percocet 5/325 Mg Tab) 1 tab PO Q4H PRN PRN Reason: Pain, moderate (4-7) Stop: 06/27/16 16:23 Oxycodone/Acetaminophen (Percocet 5/325 Mg Tab) 2 tab PO Q4H PRN PRN Reason: Pain, severe (8-10) Stop: 06/27/16 16:27 Last Admin: 06/24/16 18:20 Dose: 2 tab Tamsulosin HCl (Flomax) 0.4 mg PO DAILY [facility] Results - Vital Signs Recent Vital Signs: Last Vital Signs Temp 98.2 F 06/24/16 17:30 Pulse 78 06/24/16 17:30 Resp 18 06/24/16 17:30 BP 111/67 06/24/16 17:30 Pulse Ox 100 06/24/16 17:30
[2016-06-24] MEDS: Ciprofloxacin 400mg/200ml D5W 400 MG/200 ML BAG IVPB SCH (23:00)
[2016-06-25] MEDS: Potassium Ch 20mEq in D5-1/2NS 1,000 ML IV SCH (02:45)
[2016-06-25] MEDS: Oxycodone/Acetaminophen 5/325 mg Tab PO PRN ×2 (04:43→10:34)
[2016-06-25 08:46] LABS: HEMATOCRIT 37.3 % (35.0-51.0); MEAN CELL VOLUME 87.2 fL (80.0-94.0); MEAN CORPUSCULAR HEMOGLOBIN 29.3 pg (27.0-31.0); MEAN CORPUSCULAR HGB CONC 33.6 g/dL (33.0-37.0); MEAN PLATELET VOLUME 7.2 fL (7.2-11.7); RED CELL DISTRIBUTION WIDTH 14.1 % (11.5-14.5); WHITE BLOOD COUNT 10.7 K/uL (4.8-10.8)
[2016-06-25 09:01] LABS: CHLORIDE 100 mmol/L (98-107); POTASSIUM 4.4 mmol/L (3.6-5.2); SODIUM 135 mmol/L (132-148)
[2016-06-25 09:03] LABS: GFR AFRICAN-AMERICAN > 60
[2016-06-25 09:04] LABS: BLOOD UREA NITROGEN 16 mg/dL (9-20); CALCIUM 8.6 mg/dl (8.6-10.4); CARBON DIOXIDE 26 mmol/L (22-30); GLUCOSE,RANDOM 100 mg/dL (75-110)
[2016-06-25] MEDS: Ciprofloxacin 400mg/200ml D5W 400 MG/200 ML BAG IVPB SCH (10:33)
[2016-06-25 12:43] LABS: RBC URINE 9 /hpf (0-3); URINE BACTERIA OCC (<OCC); URINE BILIRUBIN NEGATIVE (NEGATIVE); URINE BLOOD 1+ (NEGATIVE); URINE COLOR Yellow (YELLOW); URINE GLUCOSE (UA) NORMAL (Normal); URINE KETONE NEGATIVE (NEGATIVE); URINE LEUKOCYTE ESTERASE 2+ Leu/uL (Negative); URINE PROTEIN NEGATIVE (NEGATIVE); URINE UROBILINOGEN NORMAL mg/dL (0.2-1.0); WBC URINE 6 /hpf (0-5)
[2016-06-25 13:06] VITALS: BP 145/76; PULSE 70; RESP 18; TEMP 98; O2SAT 98
--- NOTE | 2016-06-26 08:05 | OP ---
PROCEDURE DATE: 06/24/2016 PREOPERATIVE DIAGNOSES: Left renal calculi. POSTOPERATIVE DIAGNOSES: Left renal calculi. PROCEDURES: Left percutaneous nephrostolithotomy. Ultrasonic lithotripsy. Nephrostogram. Flexible nephroscopy. PROCEDURE FOLLOWS: The patient received perioperative antibiotics. The patient was in the supine position. The general anesthesia was administered via endotracheal tube. Acuña catheter was insert ed per urethra. The patient was then placed in the prone position. The left flank was prepped and draped in a steril e fashion. Procedure was performed under video endoscopic control as well as fluoroscopic control with C-arm. Chip Mixing Machine Operator fluoroscopy of the abdomen revealed the reentry Malecot nephrostomy tube in proper position. The nephrostomy tube was partially removed, until the Malecot wings were at the level of the skin. A 0.35 inch guidewire was inserted into the ureteral tail, and then passed down to the bladder. A 10-Palauan catheter was passed over the guidewire. A 12-Palauan coaxial sheath was passed. A second guidewire was then introduced down to the level of the bladder. Nephroscopy was performed with a 24-Palauan nephroscope advanced adjacent to the guidewires. The neph roscope was advanced under direct vision with video endoscopic control. The renal pelvis was inspected. There were multiple small stones within the renal pelvis and the ure teropelvic junction. These were removed using grasping forceps as well as the ultrasonic lithotripte r probe. The lower pole was inspected. There were noted to be multiple stones within the lower pole. These s tones were fully fragmented and removed. There were no residual stones visualized. Attention was then turned toward the upper pole. Small fragments were removed as well. Nephrostogram was performed through the nephroscope. Iodinated contrast dye was instilled. The kizzy ecting system was visualized, both fluoroscopically as well as with the rigid nephroscope. There wer e no further stones identified. A 16-Palauan flexible nephroscope was then introduced. The upper and lower poles were inspected, as g uided by fluoroscopy. There were no residual stones identified. There were a few small fragments wi thin the pelvis and ureteropelvic junction. These fragments were removed using the rigid nephroscope which was reintroduced, and using the ultrasonic probe with suction aspiration. The nephroscope was then removed. A 24-Palauan reentry Malecot catheter was inserted over the guidewi re. Proper position was confirmed with nephrostogram performed. The nephrostomy tube was secured to the skin. Marcaine 0.5% was infiltrated for a field block adjace nt to the nephrostomy tube, as well as for intercostal block. A sterile dressing was applied. ESTIMATED BLOOD LOSS: 100 mL. The stones were sent for analysis. The patient tolerated the procedure without complication. [facility] to the recovery room in satisfactory condition. Erlinda Baldwin MD cc: [phone] TT: 06/26/2016 08:05:06 en
[2016-06-29 15:56] LABS: STONE SOURCE Left Kidney
== END 2016-06-25 14:17 | disposition home or self-care (01) ==
LOC: C.9S 09:57 → C.SDS 09:57 → UNDOADMIN 09:57 → EDSTATUS 12:15 → C.9S 17:48 → C.6T 17:48 → UNDODISIN 06-25 14:17 → C.SDS 06-25 14:17
PROVIDERS: ATTEND Urology
PROC: 0TC13ZZ Extirpation of Matter from Left Kidney, Percutaneous Approach (ICD-10-PCS; principal; 2016-06-24 12:15)
DX: N20.0 Calculus of kidney (principal); I10 Essential (primary) hypertension; F32.9 Major depressive disorder, single episode, unspecified; Z87.891 Personal history of nicotine dependence; E78.00 Pure hypercholesterolemia, unspecified; F41.9 Anxiety disorder, unspecified
CPT/HCPCS: 36415; 52353; 76000; 80048; 81001; 82365; 85027; 87086; 88300; C1758; C1769; J0696; J0744; J1170; J1580; J2250; J2704; J3010; J7120

== ENCOUNTER 2016-07-25 16:29 | Emergency (ER) | payer OTHER ==
[2016-07-25 16:29] VITALS: BMI 31.1
[2016-07-25 16:46] VITALS: RESP 18
[2016-07-25 18:03] LABS: BASO # 0.1 K/uL (0.0-0.2); BASO % 0.8 % (0.0-2.0); EOS # 0.4 K/uL (0.0-0.7); EOS % 2.9 % (0.0-4.0); HEMATOCRIT 43.4 % (35.0-51.0); LYMPH # 3.4 K/uL (1.0-4.3); LYMPH % 24.5 % (20.0-40.0); MEAN CELL VOLUME 87.2 fL (80.0-94.0); MEAN CORPUSCULAR HEMOGLOBIN 28.6 pg (27.0-31.0); MEAN CORPUSCULAR HGB CONC 32.8 g/dL (33.0-37.0); MEAN PLATELET VOLUME 7.5 fL (7.2-11.7); MONO # 1.5 K/uL (0.0-0.8); MONO % 10.5 % (0.0-10.0); WHITE BLOOD COUNT 13.9 K/uL (4.8-10.8)
[2016-07-25 18:10] LABS: CHLORIDE 108 mmol/L (98-107); SODIUM 139 mmol/L (132-148)
[2016-07-25 18:11] LABS: POTASSIUM 3.8 mmol/L (3.6-5.2)
[2016-07-25 18:13] LABS: ALB/GLOB RATIO 1.3 (1.0-2.1); ALKALINE PHOSPHATASE 99 U/L (38-126); AST/SGOT 17 U/L (17-59); BILIRUBIN,TOTAL 0.6 mg/dL (0.2-1.3); BLOOD UREA NITROGEN 21 mg/dL (9-20); CARBON DIOXIDE 20 mmol/L (22-30); GFR AFRICAN-AMERICAN > 60; RBC URINE 1426 /hpf (0-3); TOTAL PROTEIN 7.3 g/dL (6.3-8.3); URINE BACTERIA FEW (<OCC); URINE BILIRUBIN NEGATIVE (NEGATIVE); URINE BLOOD 3+ (NEGATIVE); URINE COLOR Red (YELLOW); URINE GLUCOSE (UA) NORMAL (Normal); URINE KETONE NEGATIVE (NEGATIVE); URINE LEUKOCYTE ESTERASE 2+ Leu/uL (Negative); URINE PROTEIN 2+ mg/dL (NEGATIVE); URINE UROBILINOGEN NORMAL mg/dL (0.2-1.0); WBC URINE 42 /hpf (0-5)
--- NOTE | 2016-07-25 18:13 | C.PDOC ---
History Of Present Illness <Felton Torres DO - Last Filed: 07/25/16 18:11> <Ke Chacko - Last Filed: 07/25/16 21:04> 55 y/o male pmhx left nephrostomy tube removed 3 weeks ago presents to the ED with complaints of dysuria and dark urine the past couple days. Pt contacted Bladimir Amezcua who recommended patient be evaluated in ED. Denies fever, nausea, vomiting, hematuria or any other complaints. History of uretal stent, currently in place. (Felton Torres DO) History Per: Patient History/Exam Limitations: no limitations Onset/Duration Of Symptoms: Days Current Symptoms Are (Timing): Still Present Severity: Moderate Associated Symptoms: Urinary Symptoms. denies: Fever, Nausea, Vomiting Alleviating Factors: None Recent travel outside of the [place]: No <Felton Torres DO - Last Filed: 07/25/16 18:11> <Ke Chacko - Last Filed: 07/25/16 21:04> Chief Complaint (Nursing): Male Genitourinary Past Medical History Reviewed: Historical Data, Nursing Documentation, Vital Signs - Medical History PMH: Anxiety, Depression, HTN, Hypercholesterolemia, Kidney Stones, Chronic Kidney Disease Family History: States: Unknown Family Hx - Social History Hx Alcohol Use: No Hx Substance Use: No - Immunization History Hx Tetanus Toxoid Vaccination: No Hx Influenza Vaccination: No Hx Pneumococcal Vaccination: No <Felton Torres DO - Last Filed: 07/25/16 18:11> Review Of Systems Except As Marked, All Systems Reviewed And Found Negative. Constitutional: Negative for: Fever, Chills Gastrointestinal: Negative for: Nausea, Vomiting, Abdominal Pain Genitourinary: Positive for: Dysuria, Other (dark urine). Negative for: Hematuria <Felton Torres DO - Last Filed: 07/25/16 18:11> Physical Exam - Physical Exam Appears: Non-toxic, No Acute Distress Skin: Warm, Dry, No Rash Head: Atraumatic, Normacephalic Chest: Symmetrical Cardiovascular: Rhythm Regular, No Murmur Respiratory: Normal Breath Sounds, No Rales, No Rhonchi, No Wheezing Gastrointestinal/Abdominal: Normal Exam, Soft, No Tenderness Back: Normal Inspection, No CVA Tenderness, Other (well healed scar from nephrostomy tube) Extremity: Bilateral: Atraumatic Neurological/Psych: Oriented x3, Normal Speech <Felton Torres DO - Last Filed: 07/25/16 18:11> ED Course And Treatment - Laboratory Results Result Diagrams: 07/25/16 17:56 O2 Sat by Pulse Oximetry: 97 (room air) Pulse Ox Interpretation: Normal <Felton Torres DO - Last Filed: 07/25/16 18:11> - Laboratory Results Result Diagrams: 07/25/16 17:56 07/25/16 17:56 Pulse Ox Interpretation: Normal Progress Note: spoke with dr baldwin. ok with sherry and will see in office Reevaluation Time: 21:00 Reassessment Condition: Improved <Yolanda Chackodi - Last Filed: 07/25/16 21:04> Medical Decision Making <Brian CARRIZALESFelton - Last Filed: 07/25/16 18:11> <Ke Chacko - Last Filed: 07/25/16 21:04> Medical Decision Making: Plan: Labs, UA, IV Fluids (Felton Torres DO) Disposition <Brian CARRIZALESFelton - Last Filed: 07/25/16 18:11> Discussed With .: Erlinda Baldwin Doctor Will See Patient In The: Office Counseled Patient/Family Regarding: Studies Performed, Diagnosis, Need For Followup - Disposition Disposition Time: 19:00 <Ke Chacko - Last Filed: 07/25/16 21:04> - Disposition Referrals: Erlinda Baldwin MD [Staff Provider] - Disposition: HOME/ ROUTINE Condition: FAIR Additional Instructions: Please call Dr baldwin to schedule appointment to remove the stent Prescriptions: Cefpodoxime [Vantin] 200 mg PO BID #20 tab Instructions: Acute Hematuria (DC), Urinary Tract Infection in Men (DC) Print Language: GAMBIAN - Clinical Impression Clinical Impression: Renal colic, Hematuria, UTI (urinary tract infection) - Scribe Statement The provider has reviewed the documentation as recorded by the Scribe <Felton Torres DO - Last Filed: 07/25/16 18:11> <Ke Chacko - Last Filed: 07/25/16 21:04> - Scribe Statement Emory Dey (Felton Torres DO) Provider Attestation: All medical record entries made by the Scribe were at my direction and personally dictated by me. I have reviewed the chart and agree that the record accurately reflects my personal performance of the history, physical exam, medical decision making, and the department course for this patient. I have also personally directed, reviewed, and agree with the discharge instructions and disposition. (Felton Torres DO)
[2016-07-25 18:14] LABS: ALT/SGPT 15 U/L (21-72); CALCIUM 9.3 mg/dl (8.6-10.4); GLUCOSE,RANDOM 124 mg/dL (75-110)
--- NOTE | 2016-07-25 20:13 | CT ---
EXAM: CT Abdomen and Pelvis Without Intravenous Contrast CLINICAL HISTORY: 55 years old, male; Pain; Abdominal pain; Flank; Right lower quadrant (rlq); Additional info: Hematuria - h/o kidney stones and stent TECHNIQUE: Axial computed tomography images of the abdomen and pelvis without intravenous contrast. This CT exam was performed using one or more of the following dose reduction techniques: automated exposure control, adjustment of the mA and/or kV according to patient size, and/or use of iterative reconstruction technique. Coronal and sagittal reformatted images were created and reviewed. EXAM DATE/TIME: 07/25/2016 6:40 PM COMPARISON: CT - ABD PELVIS W/O PO OR IV CONT 06/20/2016 9:06:24 AM FINDINGS: Lower thorax: Heart size is normal. There is minimal atelectasis and scarring at the lung bases. ABDOMEN: Liver: unremarkable Gallbladder and bile ducts: Gallbladder is collapsed. Common bile duct is unremarkable. Pancreas: unremarkable Spleen: unremarkable Adrenals: There is bilateral adrenal thickening and nodularity. Kidneys and ureters: Right kidney is normal in size. There is continued right pelvocaliectasis. There is a right ureteral stent, unchanged. There is right ureteral wall thickening. There is proximal right are ureteric inflammation and edema. There is left perinephric stranding and edema. Left kidney is mildly atrophic. There are multiple nonobstructing left renal stones. Left nephrostomy tube is been removed. Left ureteral stent has been removed. There is no left ureterectasis. There are no left ureteral stones. Stomach and bowel: Stomach is partially distended. Rotation is normal. Proximal small bowel is mildly distended. Distention decreases distally. There is no obstruction. Terminal ileum is unremarkable. Appendix is not visualized. There is no pericecal inflammation.Colon is incompletely distended which limits evaluation. There is scattered diverticulosis Appendix: See stomach and bowel PELVIS: Bladder: Bladder is only partially distended. Reproductive: Seminal vesicles and prostate are unremarkable. ABDOMEN and PELVIS: Intraperitoneal space: There is no free air or free fluid. Bones/joints: There are degenerative changes in the osseus structures. Soft tissues: unremarkable Vasculature: There are vascular calcifications. Lymph nodes: There is no pathologic adenopathy. IMPRESSION: Persistent right caliectasis and proximal periureteric inflammation with a ureteral stent, no right renal or ureteral stones; interval removal of left nephrostomy and ureteral stent; mild left renal atrophy with pelvocaliectasis and multiple nonobstructing left renal stones, no ureteral stones or ureterectasis; persistent left perinephric stranding; nonvisualization the appendix with no CT findings of acute sinusitis
[2016-07-25 20:35] VITALS: BP 142/87; PULSE 70; TEMP 98.1; O2SAT 98
[2016-07-25] MEDS ORDERED: Cefpodoxime (Vantin) 200 mg Tab PO STA (21:04)
== END 2016-07-25 21:14 | disposition home or self-care (01) ==
LOC: C.ER 16:29
DX: N20.0 Calculus of kidney (principal); N39.0 Urinary tract infection, site not specified; R31.9 Hematuria, unspecified; Z87.442 Personal history of urinary calculi
CPT/HCPCS: 74176; 80053; 81001; 83690; 85025; 87086; 99284; J0694

== ENCOUNTER 2016-08-01 18:50 | Inpatient (IN) | payer OTHER ==
[2016-08-01 18:50] VITALS: BMI 31.1
[2016-08-01 20:24] LABS: RBC URINE 3491 /hpf (0-3); URINE BACTERIA FEW (<OCC); URINE BILIRUBIN NEGATIVE (NEGATIVE); URINE BLOOD 2+ (NEGATIVE); URINE COLOR Yellow (YELLOW); URINE GLUCOSE (UA) NORMAL (Normal); URINE KETONE NEGATIVE (NEGATIVE); URINE LEUKOCYTE ESTERASE 2+ Leu/uL (Negative); URINE PROTEIN 2+ mg/dL (NEGATIVE); URINE UROBILINOGEN NORMAL mg/dL (0.2-1.0); WBC URINE 97 /hpf (0-5)
[2016-08-01] MEDS ORDERED: Sodium Chloride 0.9% 1,000 ML IV ONE (22:43)
--- NOTE | 2016-08-01 22:44 | C.PDOC ---
History Of Present Illness Pt presents with worsening dysuria, hematuria. Pt is on abx , but symptoms worsened over the last few days. Time Seen by Provider: 08/01/16 22:20 Chief Complaint (Nursing): Male Genitourinary History Per: Patient History/Exam Limitations: no limitations Onset/Duration Of Symptoms: Days Current Symptoms Are (Timing): Still Present Severity: Moderate Pain Scale Rating Of: 4 Quality Of Discomfort: Burning Associated Symptoms: Nausea, Back Pain, Urinary Symptoms. denies: Fever, Chills Alleviating Factors: None Recent travel outside of the [place]: No Additional History Per: Patient Past Medical History Reviewed: Historical Data, Nursing Documentation, Vital Signs Vital Signs: Last Vital Signs Temp 98.0 F 08/01/16 22:07 Pulse 61 08/01/16 22:07 Resp 18 08/01/16 22:07 BP 118/75 08/01/16 22:07 Pulse Ox 96 08/01/16 23:26 - Medical History PMH: Anxiety, Depression, HTN, Hypercholesterolemia, Kidney Stones, Chronic Kidney Disease - [facility] Procedures DRAINAGE OF LEFT KIDNEY PELVIS WITH DRAIN DEV, PERC APPROACH (06/13/16) EXTIRPATION OF MATTER FROM LEFT KIDNEY PELVIS, PERC APPROACH (06/13/16) EXTIRPATION OF MATTER FROM LEFT KIDNEY, PERC APPROACH (06/24/16) EXTIRPATION OF MATTER FROM LEFT URETER, PERC APPROACH (06/13/16) INTRODUCE REGIONAL ANESTH IN PERIPH NRV, PLEXI, PERC (06/13/16) Family History: States: No Known Family Hx - Social History Hx Alcohol Use: No Hx Substance Use: No - Immunization History Hx Tetanus Toxoid Vaccination: No Hx Influenza Vaccination: No Hx Pneumococcal Vaccination: No Review Of Systems Constitutional: Negative for: Fever, Chills Cardiovascular: Negative for: Chest Pain Respiratory: Negative for: Shortness of Breath Gastrointestinal: Positive for: Abdominal Pain. Negative for: Nausea, Vomiting Genitourinary: Positive for: Dysuria, Hematuria Musculoskeletal: Positive for: Back Pain Skin: Negative for: Rash, Lesions, Jaundice Neurological: Negative for: Weakness Psych: Negative for: Anxiety Physical Exam - Physical Exam Appears: Non-toxic Skin: Warm, Dry Head: Normacephalic Eye(s): bilateral: Normal Inspection Oral Mucosa: Moist Neck: Supple Chest: Symmetrical Cardiovascular: Rhythm Regular Respiratory: No Rales, No Rhonchi, No Wheezing Gastrointestinal/Abdominal: Soft, Tenderness (suprapubic), No Distention Back: CVA Tenderness (left) Male Genital: No Inguinal Tenderness, No Inguinal Swelling Extremity: No Tenderness Extremity: Bilateral: Atraumatic Neurological/Psych: Oriented x3, Normal Speech, Normal Cognition Gait: Steady ED Course And Treatment - Laboratory Results Result Diagrams: 08/01/16 22:53 08/01/16 22:53 O2 Sat by Pulse Oximetry: 96 Pulse Ox Interpretation: Normal Disposition Discussed With Dr.: Erasto Norris Counseled Patient/Family Regarding: Studies Performed, Diagnosis - Disposition Disposition: HOSPITALIZED Disposition Time: 22:00 Condition: FAIR - Clinical Impression Clinical Impression: Renal colic, Urinary tract infection, Hematuria Decision To Admit - Pt Status Changed To: Hospital Disposition Of: Inpatient - Admit Certification Admit to Inpatient:: After my assessment, the patient will require hospitalization for at least two midnights. This is because of the severity of symptoms shown, intensity of services needed, and/or the medical risk in this patient being treated as an outpatient. - InPatient: Physician Admission Certification: I certify that this patient requires 2 or more midnights of care for the following reason:: After my assessment, the patient will require hospitalization for at least two midnights. This is because of the severity of symptoms shown, intensity of services needed, and/or the medical risk in this patient being treated as an outpatient. - . Bed Request Type: Regular Admitting Physician: Erasto Norris Patient Diagnosis: Renal colic, Urinary tract infection, Hematuria
[2016-08-01 22:56] LABS: BASO # 0.2 K/uL (0.0-0.2); BASO % 1.2 % (0.0-2.0); EOS # 0.4 K/uL (0.0-0.7); EOS % 2.6 % (0.0-4.0); HEMATOCRIT 43.8 % (35.0-51.0); LYMPH # 5.1 K/uL (1.0-4.3); LYMPH % 31.9 % (20.0-40.0); MEAN CELL VOLUME 87.5 fL (80.0-94.0); MEAN CORPUSCULAR HEMOGLOBIN 28.1 pg (27.0-31.0); MEAN CORPUSCULAR HGB CONC 32.1 g/dL (33.0-37.0); MEAN PLATELET VOLUME 7.7 fL (7.2-11.7); MONO # 1.1 K/uL (0.0-0.8); MONO % 7.1 % (0.0-10.0); RED CELL DISTRIBUTION WIDTH 15.6 % (11.5-14.5); WHITE BLOOD COUNT 15.8 K/uL (4.8-10.8)
[2016-08-01] MEDS ORDERED: Sodium Chloride 0.9% 1,000 ML ONE (22:59)
[2016-08-01 23:07] LABS: CHLORIDE 108 mmol/L (98-107)
[2016-08-01 23:09] LABS: POTASSIUM 4.1 mmol/L (3.6-5.2); SODIUM 137 mmol/L (132-148)
[2016-08-01 23:11] LABS: ALB/GLOB RATIO 1.4 (1.0-2.1); ALKALINE PHOSPHATASE 97 U/L (38-126); AST/SGOT 15 U/L (17-59); BILIRUBIN,TOTAL 0.7 mg/dL (0.2-1.3); BLOOD UREA NITROGEN 26 mg/dL (9-20); CARBON DIOXIDE 18 mmol/L (22-30); GFR AFRICAN-AMERICAN > 60; TOTAL PROTEIN 6.8 g/dL (6.3-8.3)
[2016-08-01 23:12] LABS: ALT/SGPT 18 U/L (21-72); CALCIUM 9.1 mg/dl (8.6-10.4); GLUCOSE,RANDOM 124 mg/dL (75-110)
[2016-08-01] MEDS ORDERED: Piperacillin/Tazobact 3.375 gm 100 ML IVPB STA (23:23)
[2016-08-02] LABS: VENOUS BLOOD GAS BASE EXCESS -4.9 mmol/L (0.0-2.0); VENOUS BLOOD GAS PCO2 35 mmHg (40-60); VENOUS BLOOD PH 7.36 (7.32-7.43)
[2016-08-02 01:07] VITALS: RESP 20
[2016-08-02] MEDS ORDERED: HYDROmorphone 1 mg/ml ISec IVP PRN (01:31)
[2016-08-02] MEDS: Pantoprazole 40 mg EC Tab PO SCH (10:20)
[2016-08-02] MEDS: Potassium Chloride 10 mEq ER Tab PO SCH ×3 (10:20→17:09)
[2016-08-02] MEDS: Moxifloxacin IV 400mg/250ml NS 400 MG/250 ML BAG IVPB SCH (10:20)
--- NOTE | 2016-08-02 10:43 | CP.PCM.CON ---
Past Patient History - Infectious Disease Hx of Infectious Diseases: None - Past Medical History & Family History Past Medical History?: Yes - Past Social History Smoking Status: Heavy Smoker > 10 Cigarettes Daily - CARDIAC Hx Cardiac Disorders: Yes Hx Hypercholesterolemia: Yes Hx Hypertension: Yes - PULMONARY Hx Respiratory Disorders: No - NEUROLOGICAL Hx Neurological Disorder: No - HEENT Hx HEENT Problems: No - RENAL Hx Chronic Kidney Disease: Yes Hx Kidney Stones: Yes - ENDOCRINE/METABOLIC Hx Endocrine Disorders: No - HEMATOLOGICAL/ONCOLOGICAL Hx Blood Disorders: No - INTEGUMENTARY Hx Dermatological Problems: No - MUSCULOSKELETAL/RHEUMATOLOGICAL Hx Musculoskeletal Disorders: No Hx Falls: No - GASTROINTESTINAL Hx Gastrointestinal Disorders: No - GENITOURINARY/GYNECOLOGICAL Hx Genitourinary Disorders: Yes Other/Comment: Kidney stone, left - PSYCHIATRIC Hx Psychophysiologic Disorder: Yes Hx Anxiety: Yes Hx Depression: Yes Hx Substance Use: No - SURGICAL HISTORY Hx Surgeries: Yes Other/Comment: TURP. HX: 06/16/16-LEFT NEPHROSTOMY TUBE INSERTED - ANESTHESIA Hx Anesthesia: Yes Hx Anesthesia Reactions: No Hx Malignant Hyperthermia: No Meds Allergies/Adverse Reactions: Allergies Allergy/AdvReac Type Severity Reaction Status Date / Time No Known Allergies Allergy Verified 08/01/16 18:58 - Medications Medications: Current Medications Allopurinol (Zyloprim) 300 mg PO DAILY [facility] Last Admin: 08/02/16 10:20 Dose: 300 mg Carvedilol (Coreg) 6.25 mg PO BID [facility] Last Admin: 08/02/16 10:20 Dose: 6.25 mg Hydromorphone HCl (Dilaudid) 1 mg IVP Q8H PRN PRN Reason: Pain, moderate (4-7) Moxifloxacin HCl (Avelox Iv 400mg/250ml Ns) 400 mg in 250 mls @ 167 mls/hr IVPB DAILY [facility] Last Admin: 08/02/16 10:20 Dose: 167 mls/hr Lisinopril (Zestril) 10 mg PO BID [facility] Last Admin: 08/02/16 10:20 Dose: 10 mg Pantoprazole Sodium (Protonix Ec Tab) 40 mg PO DAILY [facility] Last Admin: 08/02/16 10:20 Dose: 40 mg Pneumococcal Polyvalent Vaccine (Pneumovax 23 Vaccine) 0.5 ml IM .ONCE ONE Stop: 08/04/16 10:01 Potassium Chloride (Klor-Con 10) 10 meq PO TID [facility] Last Admin: 08/02/16 10:20 Dose: 10 meq Tamsulosin HCl (Flomax) 0.4 mg PO DAILY [facility] Last Admin: 08/02/16 10:20 Dose: 0.4 mg Results - Vital Signs Recent Vital Signs: Last Vital Signs Temp 98.5 F 08/02/16 08:39 Pulse 62 08/02/16 08:39 Resp 20 08/02/16 08:39 BP 123/80 08/02/16 08:39 Pulse Ox 98 08/02/16 08:39 - Labs Result Diagrams: 08/01/16 22:53 08/01/16 22:53 Labs: Laboratory Results - last 24 hr 08/01/16 23:53 pO2 60 H VBG pH 7.36 VBG pCO2 35 L VBG HCO3 20.9 VBG Total CO2 20.9 L VBG O2 Sat (Calc) 95.8 H VBG Base Excess -4.9 L VBG Potassium 4.2 Sodium 139.0 Chloride 109.0 H Glucose 121 H Lactate 1.3 Venous Blood Potassium 4.2 Assessment & Plan - Assessment and Plan (Free Text) Assessment: imp: uti urolithiasis hematuria Plan: plan/rec: culture antibiotic rx full note t/f thank you - Date & Time Date: 08/02/16 Time: 10:43
--- NOTE | 2016-08-02 15:29 | CP.PCM.HP ---
Past Patient History - Infectious Disease Hx of Infectious Diseases: None - Past Medical History & Family History Past Medical History?: Yes - Past Social History Smoking Status: Heavy Smoker > 10 Cigarettes Daily - CARDIAC Hx Cardiac Disorders: Yes Hx Hypercholesterolemia: Yes Hx Hypertension: Yes - PULMONARY Hx Respiratory Disorders: No - NEUROLOGICAL Hx Neurological Disorder: No - HEENT Hx HEENT Problems: No - RENAL Hx Chronic Kidney Disease: Yes Hx Kidney Stones: Yes - ENDOCRINE/METABOLIC Hx Endocrine Disorders: No - HEMATOLOGICAL/ONCOLOGICAL Hx Blood Disorders: No - INTEGUMENTARY Hx Dermatological Problems: No - MUSCULOSKELETAL/RHEUMATOLOGICAL Hx Musculoskeletal Disorders: No Hx Falls: No - GASTROINTESTINAL Hx Gastrointestinal Disorders: No - GENITOURINARY/GYNECOLOGICAL Hx Genitourinary Disorders: Yes Other/Comment: Kidney stone, left - PSYCHIATRIC Hx Psychophysiologic Disorder: Yes Hx Anxiety: Yes Hx Depression: Yes Hx Substance Use: No - SURGICAL HISTORY Hx Surgeries: Yes Other/Comment: TURP. HX: 06/16/16-LEFT NEPHROSTOMY TUBE INSERTED - ANESTHESIA Hx Anesthesia: Yes Hx Anesthesia Reactions: No Hx Malignant Hyperthermia: No Meds Allergies/Adverse Reactions: Allergies Allergy/AdvReac Type Severity Reaction Status Date / Time No Known Allergies Allergy Verified 08/01/16 18:58 Physical Exam - Constitutional Appears: Well - Head Exam Head Exam: ATRAUMATIC, NORMAL INSPECTION, NORMOCEPHALIC - Eye Exam Eye Exam: EOMI, Normal appearance, PERRL Pupil Exam: NORMAL ACCOMODATION, PERRL - ENT Exam ENT Exam: Mucous Membranes Moist, Normal Exam - Neck Exam Neck exam: Positive for: Normal Inspection - Respiratory Exam Respiratory Exam: Decreased Breath Sounds - Cardiovascular Exam Cardiovascular Exam: REGULAR RHYTHM, +S1, +S2 - GI/Abdominal Exam GI & Abdominal Exam: Diminished Bowel Sounds, Soft - Rectal Exam Rectal Exam: Deferred Results - Vital Signs Recent Vital Signs: Last Vital Signs Temp 98.5 F 08/02/16 08:39 Pulse 62 08/02/16 08:39 Resp 20 08/02/16 08:39 BP 123/80 08/02/16 08:39 Pulse Ox 98 08/02/16 08:39 - Labs Result Diagrams: 08/01/16 22:53 08/01/16 22:53 Labs: Laboratory Results - last 24 hr 08/01/16 23:53 pO2 60 H VBG pH 7.36 VBG pCO2 35 L VBG HCO3 20.9 VBG Total CO2 20.9 L VBG O2 Sat (Calc) 95.8 H VBG Base Excess -4.9 L VBG Potassium 4.2 Sodium 139.0 Chloride 109.0 H Glucose 121 H Lactate 1.3 Venous Blood Potassium 4.2
--- NOTE | 2016-08-03 09:04 | PCM.URO ---
Urology Progress Note - General General: No Complaints, Tolerating Diet - Subjective Abdominal Pain: No Flank Pain: No Nausea: No Vomiting: No Voiding Well: Yes Dysuria: No Hematuria: No Dsypnea: No Chest Pain: No Fever & Chills: No - Objective Lab Studies: Reviewed Intake & Output: Intake & Output 08/02/16 08/03/16 08/03/16 18:59 06:59 18:59 Output Total 350 Balance -350 Output: Urine 350 Urine, Voided 350 Other: # Voids Urine, Voided 1 Vital Signs: Vital Signs - 24 hr 08/02/16 08/02/16 08/03/16 16:05 23:57 08:10 Temperature 97.9 F 98.1 F 97.1 F L Pulse Rate 71 60 61 Respiratory 20 20 20 Rate Blood Pressure 108/68 110/69 124/78 O2 Sat by Pulse 99 98 96 Oximetry - Physical Exam Abdominal Exam: Soft, Non-Tender, Non-Distended Back: No CVA Tenderness Urine Color: Clear, Yellow - Plan Additional Information: imp: IMPROVING CLINICALLY. R STENT IN PLACE. UROLITHIASIS. PLAN/REC: CONTINUE ANTIBIOTIC RX. DISCUSSED W PT - Date & Time of Note Date: 08/03/16 Time: 09:04
[2016-08-03] MEDS: Potassium Chloride 10 mEq ER Tab PO SCH ×3 (10:21→17:35)
[2016-08-03] MEDS: Pantoprazole 40 mg EC Tab PO SCH (10:21)
[2016-08-03] MEDS: Moxifloxacin IV 400mg/250ml NS 400 MG/250 ML BAG IVPB SCH (10:22)
--- NOTE | 2016-08-03 18:11 | CP.PCM.PN ---
Subjective - Date & Time of Evaluation Date of Evaluation: 08/03/16 Time of Evaluation: 09:00 - Subjective Subjective: clinically same Objective - Vital Signs/Intake and Output Vital Signs (last 24 hours): Temp Pulse Resp BP Pulse Ox 98.0 F 68 20 102/63 96 08/03/16 15:00 08/03/16 15:00 08/03/16 15:00 08/03/16 15:00 08/03/16 15:00 Intake and Output: 08/03/16 08/03/16 06:59 18:59 Intake Total 500 Output Total 350 Balance -350 500 - Medications Medications: Current Medications Allopurinol (Zyloprim) 300 mg PO DAILY [facility] Last Admin: 08/03/16 10:22 Dose: 300 mg Carvedilol (Coreg) 6.25 mg PO BID [facility] Last Admin: 08/03/16 17:35 Dose: 6.25 mg Hydromorphone HCl (Dilaudid) 1 mg IVP Q8H PRN PRN Reason: Pain, moderate (4-7) Moxifloxacin HCl (Avelox Iv 400mg/250ml Ns) 400 mg in 250 mls @ 167 mls/hr IVPB DAILY [facility] Last Admin: 08/03/16 10:22 Dose: 167 mls/hr Lisinopril (Zestril) 10 mg PO BID [facility] Last Admin: 08/03/16 17:35 Dose: 10 mg Pantoprazole Sodium (Protonix Ec Tab) 40 mg PO DAILY [facility] Last Admin: 08/03/16 10:21 Dose: 40 mg Pneumococcal Polyvalent Vaccine (Pneumovax 23 Vaccine) 0.5 ml IM .ONCE ONE Stop: 08/04/16 10:01 Potassium Chloride (Klor-Con 10) 10 meq PO TID [facility] Last Admin: 08/03/16 17:35 Dose: 10 meq Tamsulosin HCl (Flomax) 0.4 mg PO DAILY [facility] Last Admin: 08/03/16 10:22 Dose: 0.4 mg
--- NOTE | 2016-08-04 01:38 | CON ---
DATE: 08/02/2016 Urology consultation requested by Dr. John Norris. Urology consultation filled by Dr. Erlinda crain. REASON FOR CONSULTATION: Urinary tract infection. Hematuria. Abdominal pain. HISTORY OF PRESENT ILLNESS: The patient is a 55-year-old male with history of urolithiasis. The patient had presented with urinary tract infection and renal insufficiency. The patient had bila teral renal stones. Several months ago, he underwent cystoscopy and bilateral stent insertion. More recently, the patient underwent extracorporeal shock wave lithotripsy. He also underwent left p ercutaneous nephrolithotomy with ultrasonic lithotripsy. The patient was found to have predominantly uric acid stones with also a component of calcium stone. The patient had been treated with potassium citrate for alkalinization as well as with possible allop urinol. The patient had a CT scan, which revealed small residual nonobstructing left renal stones. There was no right renal stone identified. The patient subsequently underwent nephrostogram which demonstrated good drainage of the left kidney without obstruction. The patient had a nephrostomy tube removed several weeks ago. The patient had presented to the Emergency Room last week and was treated for urinary tract infection . He presented again yesterday with similar symptoms. The patient had abdominal pain. The patient had hematuria. There was no fever. The patient was noted to have leukocytosis. The patient was adm itted for evaluation and treatment for urinary tract infection. For further details, see old chart. PHYSICAL EXAMINATION: GENERAL: The patient is well-developed, well-nourished middle-aged male. The patient is awake and a lert. ABDOMEN: Soft, nontender, nondistended. No mass or organomegaly. BACK: No CVA tenderness. Left nephrostomy access site is closed and well healed. GENITALIA: Without inflammation. LABORATORY DATA: Reviewed. IMPRESSION: Probable urinary tract infection. Abnormal urinalysis. Leukocytosis. History of uroli thiasis. History of indwelling right ureteral stent. Status post left percutaneous nephrolithotomy and ultrasonic lithotripsy. Status post ESWL. RECOMMENDATIONS AND PLAN: Hydration. Urine cultures. Antibiotic therapy. Further therapy to follo w according to patient's clinical course. Thank you for recommending the patient for urology consultation. Erlinda Baldwin MD cc: [id number] TT: 08/04/2016 01:37:21 Confirmation # [id number] Dictation # [id number]
--- NOTE | 2016-08-04 07:52 | PCM.URO ---
Urology Progress Note - Objective Intake & Output: Intake & Output 08/03/16 08/04/16 08/04/16 18:59 06:59 18:59 Intake Total 500 0 Balance 500 0 Intake: Intake, IV Amount 0 Left Hand 0 Oral 500 Other: # Voids Urine, Voided 500 2 Vital Signs: Vital Signs - 24 hr 08/03/16 08/03/16 08/04/16 08:10 15:00 00:28 Temperature 97.1 F L 98.0 F 98 F Pulse Rate 61 68 61 Respiratory 20 20 20 Rate Blood Pressure 124/78 102/63 102/62 O2 Sat by Pulse 96 96 97 Oximetry - Date & Time of Note Date: 08/04/16 Time: 07:52
[2016-08-04 08:27] VITALS: BP 132/77; PULSE 56; TEMP 98.4; O2SAT 99
--- NOTE | 2016-08-04 09:37 | CP.PCM.PN ---
Subjective - Date & Time of Evaluation Date of Evaluation: 08/04/16 Time of Evaluation: 09:36 - Subjective Subjective: PGY2 Medicine Note- Dr. Norris's service Patient is at 55 year old male with indwelling right ureteral stent, s/p percutaneous nephrolithotomy and lithotripsy. Patient also previously had left sided nephrostomy. Patient seen and examined this morning at bedside. Patient states hematuria has resolved. Patient states pain has resolved as well. Objective - Vital Signs/Intake and Output Vital Signs (last 24 hours): Temp Pulse Resp BP Pulse Ox 98.4 F 56 L 20 132/77 99 08/04/16 08:26 08/04/16 08:26 08/04/16 08:26 08/04/16 08:26 08/04/16 08:26 Intake and Output: 08/04/16 08/04/16 06:59 18:59 Intake Total 0 Balance 0 - Medications Medications: Current Medications Allopurinol (Zyloprim) 300 mg PO DAILY [facility] Last Admin: 08/03/16 10:22 Dose: 300 mg Carvedilol (Coreg) 6.25 mg PO BID [facility] Last Admin: 08/03/16 17:35 Dose: 6.25 mg Hydromorphone HCl (Dilaudid) 1 mg IVP Q8H PRN PRN Reason: Pain, moderate (4-7) Moxifloxacin HCl (Avelox Iv 400mg/250ml Ns) 400 mg in 250 mls @ 167 mls/hr IVPB DAILY [facility] Last Admin: 08/03/16 10:22 Dose: 167 mls/hr Lisinopril (Zestril) 10 mg PO BID [facility] Last Admin: 08/03/16 17:35 Dose: 10 mg Pantoprazole Sodium (Protonix Ec Tab) 40 mg PO DAILY [facility] Last Admin: 08/03/16 10:21 Dose: 40 mg Pneumococcal Polyvalent Vaccine (Pneumovax 23 Vaccine) 0.5 ml IM .ONCE ONE Stop: 08/04/16 10:01 Potassium Chloride (Klor-Con 10) 10 meq PO TID [facility] Last Admin: 08/03/16 17:35 Dose: 10 meq Tamsulosin HCl (Flomax) 0.4 mg PO DAILY [facility] Last Admin: 08/03/16 10:22 Dose: 0.4 mg - Constitutional Appears: Non-toxic, No Acute Distress - Head Exam Head Exam: ATRAUMATIC, NORMOCEPHALIC - Eye Exam Eye Exam: EOMI - ENT Exam ENT Exam: Mucous Membranes Moist - Respiratory Exam Respiratory Exam: Clear to Ausculation Bilateral, NORMAL BREATHING PATTERN - Cardiovascular Exam Cardiovascular Exam: +S1, +S2 - GI/Abdominal Exam GI & Abdominal Exam: Soft, Normal Bowel Sounds. absent: Tenderness - Extremities Exam Extremities Exam: Normal Inspection. absent: Pedal Edema - Back Exam Back Exam: absent: CVA tenderness (L), CVA tenderness (R) - Neurological Exam Neurological Exam: Alert, Awake - Psychiatric Exam Psychiatric exam: Normal Affect, Normal Mood - Skin Skin Exam: Dry, Warm Assessment and Plan - Assessment and Plan (Free Text) Assessment: Nephrolithiasis/ UTI s/p Percutaneous nephrostomy, Percutaneous removal of renal stones by Dr. Baldwin in 06/2016 urine culture negative, patient to be discharged on empiric antibiotic- levaquin continue flomax 0.4mg daily continue allopurinol 300mg daily for uric acid stones Abd/Pelvis CT 06/11/16 - b/l ureteral stents with severe hydronephrosis. Depending layering calcifications notes within the left kidney compatible with calculi. Within the proximal ureter there is a 1.3 x 1.5 cm calculus. (please see full report) HTN Coreg 6.25mg PO BID Lisinopril 10mg PO daily Depression Celexa 20mg PO daily Tobacco abuse Nicotine patch 21mg/patch TD daily Prophylaxis Protonix 40mg PO daily SCDs Patient is stable for discharge home per Dr. Norris. Patient is to follow up with Dr. Norris on 08/08/16 after 4pm and call [phone] for an appointment. Patient is to follow up with Dr. Baldwin tomorrow for outpatient procedure. Patient is being discharged with levaquin per Dr. Baldwin. Patient is to return to the ED if his symptoms worsen or reoccur.
[2016-08-04] MEDS ORDERED: Pneumococcal 23-Valent Vaccine IM ONE (10:00)
[2016-08-04] MEDS: Potassium Chloride 10 mEq ER Tab PO SCH ×2 (10:34→13:51)
[2016-08-04] MEDS: Pantoprazole 40 mg EC Tab PO SCH (10:35)
[2016-08-04] MEDS: Moxifloxacin IV 400mg/250ml NS 400 MG/250 ML BAG IVPB SCH (10:43)
[2016-08-04 11:43] LABS: BASO # 0.1 K/uL (0.0-0.2); BASO % 0.5 % (0.0-2.0); EOS # 0.2 K/uL (0.0-0.7); EOS % 2.4 % (0.0-4.0); HEMATOCRIT 40.6 % (35.0-51.0); LYMPH # 2.9 K/uL (1.0-4.3); LYMPH % 28.5 % (20.0-40.0); MEAN CELL VOLUME 87.5 fL (80.0-94.0); MEAN CORPUSCULAR HEMOGLOBIN 28.6 pg (27.0-31.0); MEAN CORPUSCULAR HGB CONC 32.7 g/dL (33.0-37.0); MEAN PLATELET VOLUME 7.8 fL (7.2-11.7); MONO # 0.8 K/uL (0.0-0.8); MONO % 8.2 % (0.0-10.0); RED CELL DISTRIBUTION WIDTH 15.9 % (11.5-14.5); WHITE BLOOD COUNT 10.1 K/uL (4.8-10.8)
[2016-08-04 11:47] LABS: CHLORIDE 110 mmol/L (98-107); POTASSIUM 3.9 mmol/L (3.6-5.2); SODIUM 138 mmol/L (132-148)
[2016-08-04 11:50] LABS: ALB/GLOB RATIO 1.1 (1.0-2.1); AST/SGOT 13 U/L (17-59); BILIRUBIN,TOTAL 0.7 mg/dL (0.2-1.3); CARBON DIOXIDE 20 mmol/L (22-30); GFR AFRICAN-AMERICAN > 60; TOTAL PROTEIN 6.2 g/dL (6.3-8.3)
[2016-08-04 11:51] LABS: ALKALINE PHOSPHATASE 86 U/L (38-126); ALT/SGPT 17 U/L (21-72); BLOOD UREA NITROGEN 18 mg/dL (9-20); GLUCOSE,RANDOM 106 mg/dL (75-110)
== END 2016-08-04 14:20 | disposition home or self-care (01) | DRG 320 ==
LOC: C.ER 18:50 → C.3T 23:26
PROVIDERS: ADMIT Internal Medicine Nephrology; ATTEND Internal Medicine Nephrology
DX: N39.0 Urinary tract infection, site not specified (principal); N18.9 Chronic kidney disease, unspecified; I12.9 Hypertensive chronic kidney disease with stage 1 through stage 4 chronic kidney disease, or unspecified chronic kidney disease; R31.9 Hematuria, unspecified; E78.00 Pure hypercholesterolemia, unspecified; F32.9 Major depressive disorder, single episode, unspecified; F17.210 Nicotine dependence, cigarettes, uncomplicated; Z87.442 Personal history of urinary calculi